=== PATIENT | female | born 1970 | race Caucasian/White ===

== ENCOUNTER → 2017-08-25 | Outpatient (CLI) | payer OTHER ==
[~2017-08-25] MED LIST: ALBUAER19 INH; BCPILLS PO; FLUT0.0529 NAE; LORA-741 PO; LORA10CA2 PO; MAGN400T6 PO; MOME100A INH; MONT1TAB3 PO; MULT-506 PO; PRLSR20 PO; RANI300T2 PO; SERT50TA PO
== END | disposition home or self-care (01) ==
LOC: C.LABPVFM 08:55
PROVIDERS: ATTEND Internal Medicine Endocrinology, Diabetes & Metabolism
DX: E05.00 Thyrotoxicosis with diffuse goiter without thyrotoxic crisis or storm (principal)

== ENCOUNTER → 2017-09-15 | Outpatient (CLI) | payer OTHER | END | disposition home or self-care (01) | LOC: C.LABPVFM 08:57 | PROVIDERS: ATTEND Internal Medicine Endocrinology, Diabetes & Metabolism | DX: E05.90 Thyrotoxicosis, unspecified without thyrotoxic crisis or storm (principal) ==

== ENCOUNTER → 2017-10-18 | Outpatient (CLI) | payer OTHER | END | disposition home or self-care (01) | LOC: C.LABPVFM 11:46 | PROVIDERS: ATTEND Internal Medicine Endocrinology, Diabetes & Metabolism | DX: E05.90 Thyrotoxicosis, unspecified without thyrotoxic crisis or storm (principal) ==

== ENCOUNTER → 2017-12-01 | Outpatient (CLI) | payer OTHER ==
--- NOTE | 2017-12-01 12:02 | DIAGNOSTIC IMAGING REPORT ---
NUCLEAR THYROID TREATMENT CLINICAL HISTORY: Hyperthyroidism. COMPARISON STUDY: Nuclear thyroid uptake and scan dated 11/16/2017. PROCEDURE: This is a 47 year-old female patient of Dr. Mckeon presenting with a clinical diagnosis of Graves' disease. Following discussion of treatment options, risks, benefits, and precautions the patient was treated with an oral dosage of 15.44 mCi of iodine-131. The patient will be followed by Dr. Mckeon. IMPRESSION: Completed iodine-131 treatment with an administered dosage of 15.44 mCi. Electronically signed by: Dimitri Pang M.D. 12/01/2017 12:01 PM Dictated Date/Time: 12/01/2017 12:00 PM
== END | disposition home or self-care (01) ==
LOC: C.NUCL 10:21
PROVIDERS: ATTEND Internal Medicine Endocrinology, Diabetes & Metabolism
DX: E05.00 Thyrotoxicosis with diffuse goiter without thyrotoxic crisis or storm (principal)

== ENCOUNTER → 2018-03-27 | Outpatient (CLI) | payer OTHER | END | disposition home or self-care (01) | LOC: C.LAB1850 08:22 | PROVIDERS: ATTEND Internal Medicine Endocrinology, Diabetes & Metabolism | DX: E05.00 Thyrotoxicosis with diffuse goiter without thyrotoxic crisis or storm (principal) ==

== ENCOUNTER 2019-06-24 06:13 | Inpatient (IN) ==
[2019-06-24] MEDS ORDERED: KETOROLAC 30 MG/ML VIAL IV STA (06:31)
[2019-06-24] MEDS ORDERED: ONDANSETRON INJ 2 MG/ML 2 ML VIAL IV STA (06:31)
[2019-06-24] MEDS ORDERED: HYDROmorphone INJ 1 MG/ML SYRINGE IV PRN (06:31)
[2019-06-24 06:43] LABS: Basophils # (auto) 0.02 K/uL (0-0.2); Basophils % (auto) 0.2 %; Eosinophils # (auto) 0.11 K/uL (0-0.5); Eosinophils % (auto) 1.1 %; Hematocrit (blood only) 49.7 % (37-47); Hemoglobin 17.6 g/dL (12.0-16.0); Immature Granulocytes # (auto) 0.03 K/uL (0.00-0.02); Immature Granulocytes % (auto) 0.3 %; Lymphocytes # (auto) 2.25 K/uL (1.2-3.4); Lymphocytes % (auto) 22.2 %; Mean Corpuscular Hemoglobin 32.2 pg (25-34); Mean Corpuscular Hgb Conc 35.4 g/dL (32-36); Mean Corpuscular Volume 90.9 fL (80-100); Monocytes # (auto) 0.93 K/uL (0.11-0.59); Monocytes % (auto) 9.2 %; Platelet Count 255 K/uL (130-400); RDW Standard Deviation 46.7 fL (36.4-46.3); Red Blood Count 5.47 M/uL (4.2-5.4); White Blood Count 10.14 K/uL (4.8-10.8)
[2019-06-24] MEDS ORDERED: SODIUM CHLORIDE 0.9% 1000ML 1,000 ML IV SCH (06:45)
[2019-06-24 07:11] LABS: Appearance Urine Clear (Clear); Bacteria Urine Automated Negative (Negative); Bilirubin Urine Negative (Negative); Blood Urine 2+ (Negative); Cast Urine Automated 0 /lpf (0-5); Color Urine Yellow; Glucose Urine UA Negative (Negative); Ketones Urine Negative (Negative); Leukocyte Esterase Urine Trace (Negative); Nitrite Urine Negative (Negative); Protein Urine Negative (Negative); Specific Gravity Urine 1.011 (1.000-1.030); Urobilinogen Urine Negative (Negative)
[2019-06-24 07:16] LABS: Albumin Globulin Ratio 0.9 (0.9-2); Albumin Level 3.7 gm/dl (3.4-5.0); Bilirubin,Total 1.2 mg/dl (0.2-1); Calcium 9.5 mg/dl (8.5-10.1); Creatinine Clr Calc Pharmacy 99.1 ml/min; Est GFR (African American) 122.3; Est GFR (Non-African American) 105.5; Globulin 4.3 gm/dl (2.5-4.0)
[2019-06-24] MEDS ORDERED: cefOXitin 2,000 MG/60 ML BAG IV STA (08:00)
[2019-06-24] MEDS ORDERED: IOVERSOL 100ml IV PRN (08:00)
--- NOTE | 2019-06-24 08:17 | Ultrasound Report ---
US gallbladder HISTORY: 49 years-old Female Pt c/o RUQ abd pain acute right upper quadrant abdominal pain COMPARISON: CT abdomen and pelvis of same day TECHNIQUE: Multiple real-time sonographic images of the abdominal right upper quadrant were obtained assessing grayscale appearance and color flow FINDINGS: The imaged pancreas appears unremarkable. No pancreatic ductal dilation. The liver is within normal l imits without focal mass or intrahepatic biliary ductal dilation. Cholelithiasis without gallbladder wall thickening or pericholecystic fluid. Common bile duct is normal, 5 mm. Imaged right kidney is un remarkable without hydronephrosis. IMPRESSION: 1. Cholelithiasis without sonographic evidence of acute cholecystitis. 2. No biliary ductal dilation. The above report was generated using voice recognition software. It may contain grammatical, syntax o r spelling errors. Electronically signed by: Ru Vazquez M.D. 06/24/2019 8:15 AM
--- NOTE | 2019-06-24 08:27 | CT Scan Report ---
ABDOMEN AND PELVIS CT WITH IV CONTRAST CT DOSE: 433.24 mGy.cm HISTORY: Acute right upper quadrant abdominal pain Pt c/o RUQ abd pain TECHNIQUE: Multiaxial CT images of the abdomen and pelvis were performed following the IV administrat ion of 94 cc of Optiray 320, A dose lowering technique was utilized adhering to the principles of [place] ANITA. COMPARISON STUDY: Right upper quadrant abdominal ultrasound of same day, CT abdomen and pelvis 2012 FINDINGS: Imaged lung bases appear clear. There is no pneumatosis or pneumoperitoneum. The imaged inferior card iac chambers appear unremarkable. Cholelithiasis described on ultrasound study of same day is not alex reciated by CT. The gallbladder wall appears to measure in the upper limits of normal. The liver, spl een, pancreas and adrenal glands are unremarkable. No renal or ureteral calculi or obstructive uropat hy. 11 mm cyst of the inferior pole right kidney. Urinary bladder, uterus and adnexa appear unremarka ble. Calcified plaque of the abdominal aorta. No aneurysm. No bowel obstruction or bowel wall thicken ing. Visualized appendix appears noninflamed. Mild generalized body wall edema. Degenerative changes of the spine, pelvis and hips. Transitional lumbosacral anatomy. IMPRESSION: 1. No bowel obstruction or bowel wall thickening. 2. Gallbladder wall measures within the upper limits of normal. Please refer to right upper quadrant abdominal ultrasound of same day for further details. Electronically signed by: Ru Vazquez M.D. 06/24/2019 8:26 AM
--- NOTE | 2019-06-24 09:10 | History & Physical Report ---
Date of Service June 24, 2019 Assessment & Plan (1) Pancreatitis: (2) Transaminitis: (3) Abdominal pain: Pt is 49 y/o F with PMH hypothyroidism, menometrorrhagia presented with c/o upper abdominal pain,with radiation to back with associated nausea started this morning. Denies fever/chills, vomiting, diarrhea. Had reported intermittent upper abdominal pain for past month relieved with TUMS. In ER pt afebrile, P: 77, R: 16, BP: 133/87, 100% on RA. WBC: 10, H/H: 17.6/49, T Bili: 1.2, AST: 101, ALT: 102, Alk Phos: 91, Lipase: 12,748 GALLBLADDER US: 1. Cholelithiasis without sonographic evidence of acute cholecystitis. 2. No biliary ductal dilation. CT ABD/PELVIS: 1. No bowel obstruction or bowel wall thickening. 2. Gallbladder wall measures within the upper limits of normal. Please refer to right upper quadrant abdominal ultrasound of same day for further details. Pancreatitis likely secondary to stone. -In ER received Dilaudid, Toradol, Zofran, 1L NSS, Mefoxin -NPO -LR at 250ml/hr -Zofran prn nausea -Morphine prn pain -GI consult -General surgery consult -CBC, Liver/CMP, Lipase in am (4) Elevated blood-pressure reading, without diagnosis of hypertension: In ER BP: 165/105. Repeat BP: 146/91 after receiving pain medication Likely secondary to pain -Monitor BP (5) Hypothyroidism: Graves disease s/p radiation -Continue levothyroxine DVT Prophylaxis -SCDs Follows with Dr Matias for routine care Pt was seen and care coordinated with Dr Adame. See addendum History of Present Illness Chief Complaint: Abdominal pain Primary Care Provider: Darlene Matias, Pt is 49 y/o F with PMH Graves disease s/p radiation, menometrorrhagia presented to ER with c/o abdominal pain. Reports for past month with intermittent upper abdominal pain that would resolve with taking TUMS. 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 Also with nausea. No vomiting. Tried TUMS without relief. Did take her am meds this morning with sip of water. Last ate nutrition bar at 20:00 last night. Reports for past several months has been doing a weight loss program that includes nutrition bars and shakes and reports has lost 75lbs. She reports the shakes make her constipated. Last BM was small yesterday. Denies fever/chills, diaphoresis, vomiting, CORONADO, dizziness, syncope, vision changes, neck pain, CP, SOB, orthopnea, palpitations, cough, sore throat, choking, otalgia, rhinorrhea, paresthesias, weakness, extremity weakness, extremity edema, rashes, urinary symptoms. Denies ETOH use. Allergies Allergy/AdvReac Type Severity Reaction Status Date / Time No Known Allergies Allergy Unverified 06/24/19 06:57 Home Medications Home Medications Medication Instructions Recorded Confirmed Type L norgest/e.estradiol-e.estrad 1 tab PO DAILY 06/24/19 06/24/19 History [Seasonique] levothyroxine 125 mcg PO QAM 06/24/19 06/24/19 History magnesium oxide 400 mg PO DAILY 06/24/19 06/24/19 History multivitamin 1 tab PO QAM 06/24/19 06/24/19 History Past Med/Surg History Medical History Hypothyroidism (Chronic) Depression (Resolved) Menometrorrhagia (Chronic) Surgical History History of tubal ligation (Chronic) History of pelvic surgery (Chronic) removal endometroma - 2001. Dr Trevino History of right inguinal hernia repair (Chronic) History of (Chronic) Family History Mother Diabetes Hypertension Grandmother (Paternal) Hypertension Social History Preferred Language: Pashto Communication Ability: Effective Tile Decorator Required: No Beliefs That Will Affect Care: None Current Living Situation: Spouse Other Information That Helps Us Care for You: No Feels Safe at Home: Yes Safety Concerns: Feels Safe At This Time Smoking Status: Never smoker Hx Alcohol Use: No Hx Substance Use: No Review of Systems Review of Systems: All systems reviewed & are unremarkable except as noted in HPI & below Physical Exam Physical Exam: General: no distress, WDWN Head: normocephalic, atraumatic Eyes: PERRL, EOM's intact, conjunctiva non-injected, anicteric ENT: normal inspection external ears, nose, mucous membranes moist Neck: supple, trachea midline Lungs: clear, no respiratory distress, no wheezing/rhonchi/rales CV: RRR, no murmur, no pretibial edema Abd: normal BS, soft, +tenderness to palpation epigastric without rebound Ext: no cyanosis, no calf tenderness Neuro: A&O x 3, no focal deficits noted, normal affect Skin: warm, dry Results & Data Vital Signs (Past 12 Hours) Vital Signs Temp Pulse Pulse Resp BP BP Pulse Ox 06/24/19 06:47 82 20 165/105 H 99 06/24/19 06:35 98 06/24/19 06:15 36.6 C 77 16 133/87 100 Laboratory Results Short CBC 06/24/19 Range/Units 06:30 WBC 10.14 (4.8-10.8) K/uL Hgb 17.6 H (12.0-16.0) g/dL Hct 49.7 H (37-47) % Plt Count 255 (130-400) K/uL BMP 06/24/19 06:30 Sodium 141 Potassium 4.0 Chloride 107 Carbon Dioxide 27 BUN 15 Creatinine 0.64 Glucose 99 Calcium 9.5 Liver Function 06/24/19 Range/Units 06:30 Total Bilirubin 1.2 H (0.2-1) mg/dl AST 101 H (15-37) U/L ALT 102 H (12-78) U/L Alkaline Phosphatase 91 (45-117) U/L Albumin 3.7 (3.4-5.0) gm/dl Urine 06/24/19 Range/Units 06:45 Urine Color Yellow Urine Appearance Clear (Clear) Urine pH 8.0 H (4.5-7.5) Ur Specific [place] 1.011 (1.000-1.030) Urine Protein Negative (Negative) Urine Glucose (UA) Negative (Negative) Diagnostic Findings GALLBLADDER US: IMPRESSION: 1. Cholelithiasis without sonographic evidence of acute cholecystitis. 2. No biliary ductal dilation. CT ABD/PELVIS WITH IV CONTRAST: IMPRESSION: 1. No bowel obstruction or bowel wall thickening. 2. Gallbladder wall measures within the upper limits of normal. Please refer to right upper quadrant abdominal ultrasound of same day for further details. Supervising Physician Co-Signing Physician Notes I have seen and examined the patient and have discussed the case with the provider above. 49 yo F presented with gallstone-induced pancreatitis after one month of epigastric pain, initially relieved with TUMS. More intense pain occurred in the 24 hours prior to arrival in the ER. She subsequently underwent an ERCP this morning with removal of a stone and stent placement. Choledocholithiasis was seen on imaging and she is now preparing for a lap guicho in the am. She is doing well post-procedure, but was reporting nausea. She is hemodynamically stable and afebrile. Heart exam reveals S1/2 without murmurs, gallops or rubs. Lungs are clear to auscultation bilaterally and she is in no respiratory distress. No conversational dyspnea was noted. Legs are warm and well-perfused without edema. Epigastric tenderness is present on exam and otherwise abdomen is soft and nondistended. Will cont to keep her NPO with LR running @ 250cc/hr. Her pain is uncontrolled with the morphine so will switch to dilaudid. Also gave IV APAP and IV Synthroid to avoid PO medications and provide adequate bowel rest. Trend labs in am and follow clinical picture. Planned dispo is home later this week barring any complications. Active issues: Gallstone pancreatitis-s/p stent placement Hypothyroidism Menometrorrhagia-on OCPs [facility]ame [facility]
--- NOTE | 2019-06-24 09:18 | Gastrointestinal Consultation ---
Date of Consultation June 24, 2019 Assessment & Plan (1) Choledocholithiasis with obstruction: Ms. Yang has RUQ pain, nausea, elevated LFTs. US is suggestive of choledocholithiasis. 1. LR 1000 bolus now. 2. NPO 3. Analgesics prn pain. 4. Plan for ERCP this afternoon by Dr. Marr. Present on Admission?: Yes Supervising Physician Co-Signing Physician Notes I performed a history and physical examination of the patient, including specifically on physical exam - soft, nontender abdomen. I have discussed the patient's management with Kyung. Please refer to the nurse practitioner's note for the documented findings and plan of care. Patient with gallstone pancreatitis and elevated LFTs, pain is better now. No leukocytosis or SIRS. High probability for choledocholithiasis. Plan for ERCP today. I explained risk, benefit and alternatives and patient agreed for procedure. History of Present Illness Reason for Consultation: Choledocholithiasis Requesting Physician: Dr. Appiah Attending Physician: Maricel Pugh History of Present Illness Ms. Erendira Yang is a 49 yr old female pt of Dr. Matias with a hx of endometriosis, Grave's disease S/P oral radiation tx who presented to the ED for upper abdomen pain, nausea/vomiting. GI is consulted for choledocholithiasis. She was awakened by severe upper abdomen pain at 3AM this morning. After trying to drink water she had nausea but no vomiting. No diarrhea. No fevers, chills, sweats, no dark urine, no acholic stools. She has had similar episodes of pain intermittently in the past 6 weeks which did not persist. She is on a weight loss diet on a low fat, low carb, moderate protein diet. She has intentionally lost 75 lbs. On arrival US with suggestion of choledocholithiasis. LFTs are elevated: T Bili 1.2, AST 101, ALT 102, Alk phos 91. Lipase is also elevated at 12,748. She is awake, alert, oriented and currently feels improvement in the pain with medication. Allergies Allergy/AdvReac Type Severity Reaction Status Date / Time No Known Allergies Allergy Unverified 06/24/19 06:57 Home Medications Home Medications Medication Instructions Recorded Confirmed Type L norgest/e.estradiol-e.estrad 1 tab PO DAILY 06/24/19 06/24/19 History [Seasonique] levothyroxine 125 mcg PO QAM 06/24/19 06/24/19 History magnesium oxide 400 mg PO DAILY 06/24/19 06/24/19 History multivitamin 1 tab PO QAM 06/24/19 06/24/19 History Patient History Medical History Hypothyroidism (Chronic) Depression (Resolved) Menometrorrhagia (Chronic) Surgical History History of tubal ligation (Chronic) History of pelvic surgery (Chronic) removal endometroma - 2001. Dr Trevino History of right inguinal hernia repair (Chronic) History of (Chronic) Family History Mother Diabetes Hypertension Grandmother (Paternal) Hypertension Social History Preferred Language: Malay Communication Ability: Effective Online Content Editor Required: No Beliefs That Will Affect Care: None Current Living Situation: Spouse Other Information That Helps Us Care for You: No Feels Safe at Home: Yes Safety Concerns: Feels Safe At This Time Smoking Status: Never smoker Hx Alcohol Use: No Hx Substance Use: No Review of Systems Review of Systems: ROS: Gen: Denies weakness, fevers, weight loss Eyes: No icterus, no eye redness, or pain, no recent vision changes Resp: No SOB, no cough Cardio: Some chest pain with the abdominal pain but no exertional pain. No palpitations/irregular beats, no chest pain GI: No abdominal pain, no nausea/vomiting : Denies pain on urination Skin: No jaundice, itching or new rashes Physical Exam Constitutional: WD/WN, vitals as above Eyes: PERRL, conjunctivae normal, anicteric sclerae ENMT: external ear and nose normal, oropharynx normal no icterus Neck: trachea midline, no thyromegaly Respiratory: normal respiratory effort, lungs clear to auscultation Cardiovascular: RRR, no murmur, no edema Gastrointestinal (Abdomen): Inspection/Auscultation: abdomen normal to inspection; abdomen not distended Percussion/Palpation: + abdomen tender (mild to moderate epigastric tenderness) and abdomen soft Musculoskeletal: no cyanosis or clubbing, extremities motor strength 5/5 Skin: no rashes, warm and dry Neurologic: PERRL, EOMI, accommodation nl, no face palsy, no dysarthria Psychiatric: A+Ox3, euthymic affect Lymphatic: no cervical or axillary lymphadenopathy Results & Data Vital Signs (Past 12 Hours) Vital Signs Temp Pulse Pulse Resp BP BP Pulse Ox 06/24/19 06:47 82 20 165/105 H 99 06/24/19 06:35 98 06/24/19 06:15 36.6 C 77 16 133/87 100 Laboratory Results WBC 10.14, T Bili 1.2, AST 101 ALT 102, Alk Phos 91, Hb 17, Hct 49, Platelets 255, Na 141, K 4, BUN 15, Cr 0.6. Diagnostic Findings CT with IV, not oral contrast 06/24/19: 1. No bowel obstruction or bowel wall thickening. 2. Gallbladder wall measures within the upper limits of normal. Please refer to right upper quadrant abdominal ultrasound of same day for further details. US 06/24/19: 1. Cholelithiasis without sonographic evidence of acute cholecystitis. 2. No biliary ductal dilation.
[2019-06-24] MEDS ORDERED: LACTATED RINGER'S 250 ML IV ONE (10:20)
[2019-06-24] MEDS ORDERED: POLYETHYLENE (MIRALAX) 17 GM PACK PO PRN (10:21)
[2019-06-24] MEDS ORDERED: ONDANSETRON INJ 2 MG/ML 2 ML VIAL IV PRN ×2 (10:21→13:19)
[2019-06-24] MEDS: LACTATED RINGER'S 1,000 ML IV SCH ×3 (10:30→22:51)
[2019-06-24] MEDS: MoRPHine SULFATE 4 MG/ML 1 ML CARP\\VIAL IV PRN ×2 (11:09→16:29)
[2019-06-24] MEDS ORDERED: DEXAMETHASONE SOD INJ 4 MG/ML VIAL ONE (12:25)
[2019-06-24] MEDS ORDERED: MIDAZOLAM HCL 1 MG/ML 2ML VIAL ONE (12:25)
[2019-06-24] MEDS ORDERED: NEOSTIGMINE METHYLSULFATE 5 MG/5 ML SYR ONE (12:25)
[2019-06-24] MEDS ORDERED: PROPOFOL IV EMULSION 10 MG/ML 20 ML VIAL IV ONE (12:25)
[2019-06-24] MEDS ORDERED: LIDOCAINE HCL 2% 2 ML VIAL/AMP(20MG/ML) INFIL ONE (12:25)
[2019-06-24] MEDS ORDERED: ONDANSETRON INJ 2 MG/ML 2 ML VIAL ONE (12:25)
[2019-06-24] MEDS ORDERED: GLYCOPYRROLATE 0.2 MG/ML VIAL ONE (12:25)
[2019-06-24] MEDS ORDERED: fentaNYL citrate 100 MCG/2 ML VIAL ONE (12:25)
--- NOTE | 2019-06-24 12:35 | Anesthesiology Consultation ---
Date of Service June 24, 2019 Assessment & Plan (1) Encounter for pre-operative examination: Chart Review Chart Review: Acceptable Risk for Surgery History Surgery Operation Date: 06/24/19 10:00 Proposed Procedures p Endoscopic Retrograde Cholangiopancreatogram - Loco Marr MD Height/Weight Height: 5 ft 2 in Weight: 70.8 kg Allergies Allergy/AdvReac Type Severity Reaction Status Date / Time No Known Allergies Allergy Unverified 06/24/19 06:57 Medications Home Medications Medication Instructions Recorded Confirmed Last Taken L norgest/e.estradiol-e.estrad 1 tab PO DAILY 06/24/19 06/24/19 06/24/19 [Seasonique] levothyroxine 125 mcg PO QAM 06/24/19 06/24/19 06/24/19 magnesium oxide 400 mg PO DAILY 06/24/19 06/24/19 Unknown multivitamin 1 tab PO QAM 06/24/19 06/24/19 06/24/19 Active Medications Generic Name Dose Route Start Last Admin Trade Name Freq PRN Reason Stop Dose Admin Lactated Ringer's 1,000 mls @ 250 mls/hr 06/24/19 10:21 06/24/19 10:30 Lr IV 07/24/19 10:20 250 mls/hr .Q4H CADEN Administration Morphine Sulfate 3 mg 06/24/19 10:21 06/24/19 11:09 Morphine Sulfate IV 07/08/19 10:20 3 mg Q3H PRN Administration Pain Past Medical History Medical History Hypothyroidism (Chronic) Depression (Resolved) Menometrorrhagia (Chronic) Past Family History Family History Mother Diabetes Hypertension Grandmother (Paternal) Hypertension Past Surgical History Surgical History History of tubal ligation (Chronic) History of pelvic surgery (Chronic) removal endometroma - 2001. Dr Trevino History of right inguinal hernia repair (Chronic) History of (Chronic) Social History Smoking Status: Never smoker Hx Alcohol Use: No Hx Substance Use: No Physical Exam Vital Signs Last Vital Signs Temp 36.6 C 06/24/19 10:15 Pulse 76 06/24/19 10:15 Resp 16 11/04/19 10:15 BP 128/83 06/24/19 10:15 Pulse Ox 97 06/24/19 10:15 Testing Laboratory Results 06/24/19 06:30 06/24/19 06:30 Urine Color Yellow 06/24/19 06:45 Urine Appearance Clear (Clear) 06/24/19 06:45 Urine pH 8.0 (4.5-7.5) H 06/24/19 06:45 Ur Specific [place] 1.011 (1.000-1.030) 06/24/19 06:45 Urine Protein Negative (Negative) 06/24/19 06:45 Urine Glucose (UA) Negative (Negative) 06/24/19 06:45 Urine Ketones Negative (Negative) 06/24/19 06:45 Urine Nitrite Negative (Negative) 06/24/19 06:45 Ur Leukocyte Esterase Trace (Negative) H 06/24/19 06:45 Urine WBC (Auto) 1-5 /hpf (0-5) 06/24/19 06:45 Urine RBC (Auto) 10-30 /hpf (0-4) H 06/24/19 06:45 U Hyaline Cast (Auto) 0 /lpf (0-5) 06/24/19 06:45 U Epithel Cells (Auto) 10-20 /lpf (0-5) H 06/24/19 06:45 Urine Bacteria (Auto) Negative (Negative) 06/24/19 06:45
--- NOTE | 2019-06-24 12:41 | Emergency Department Note ---
Entered by Jose Jones acting as a scribe for Jaydon Appiah MD History of Present Illness General Chief complaint: Abdominal Pain Stated complaint: UPPER ABDOMINAL PAIN Time Seen by Provider: 06/24/19 06:25 Source: patient History of Present Illness Provider complaint: Abdominal pain Onset (ago): hour(s) 3 Location: abdomen Severity: similar to prior episodes Pain Consistency: + constant Maximum Pain Intensity: 10 Current Pain Intensity: 10 Relieved By: + none Exacerbated By: + other (Deep breath) Associated symptoms: + nausea/vomiting (No vomiting) The patient is a 49 year old female who presents to the Emergency Room with complaints of constant upper abdominal pain that started this morning about 3 hours ago. The patient rates the pain as a 10/10 and notes taking a deep breath makes it worse. The patient reports that she tried taking Tums prior to arrival but had no relief of symptoms. The patient adds that she has had similar pain in the past, however it is never this severe nor has it ever lasted this long. The patient states she still has a gallbladder but has a history of endometrioma removal, and hernia repair. Home Medications Home Medications Medication Instructions Recorded Confirmed Type L norgest/e.estradiol-e.estrad 1 tab PO DAILY 06/24/19 06/24/19 History [Seasonique] levothyroxine 125 mcg PO QAM 06/24/19 06/24/19 History magnesium oxide 400 mg PO DAILY 06/24/19 06/24/19 History multivitamin 1 tab PO QAM 06/24/19 06/24/19 History Allergies Allergy/AdvReac Type Severity Reaction Status Date / Time No Known Allergies Allergy Unverified 06/24/19 06:57 Past Med/Surg History Medical History Hypothyroidism (Chronic) Depression (Resolved) Menometrorrhagia (Chronic) Surgical History History of tubal ligation (Chronic) History of pelvic surgery (Chronic) removal endometroma - 2001. Dr Trevino History of right inguinal hernia repair (Chronic) History of (Chronic) Family History Mother Diabetes Hypertension Grandmother (Paternal) Hypertension Social History Preferred Language: Vietnamese Communication Ability: Effective Foundry Helper Required: No Beliefs That Will Affect Care: None Current Living Situation: Spouse Other Information That Helps Us Care for You: No Feels Safe at Home: Yes Safety Concerns: Feels Safe At This Time Smoking Status: Never smoker Hx Alcohol Use: No Hx Substance Use: No Review of Systems See HPI for pertinent positives & negatives. and A total of 10 systems reviewed and were otherwise negative Physical Exam Vital Signs Vital Signs - 24 hr 06/24/19 06:15 06/24/19 06:35 06/24/19 06:47 Temperature 36.6 C Temperature Source Oral Sepsis Recent Fever Within 48 Hours No Sepsis New/Unexplained Change in Mental Status No Sepsis Action Taken by Nursing No Action Required Pulse Rate 77 Pulse Rate [Bilateral Apical] 82 Respiratory Rate 16 20 Respiratory Effort / Characteristics Non-Labored Respiratory Depth Normal Blood Pressure 133/87 Blood Pressure [Left Arm] 165/105 H Blood Pressure Mean 102 Blood Pressure Mean [Left Arm] 125 Pulse Oximetry 100 98 99 Oxygen Delivery Method Room Air Room Air Room Air GENERAL: Awake, alert, well-appearing, in no distress HENT: Normocephalic, atraumatic. Oropharynx unremarkable. EYES: Normal conjunctiva. Sclera non-icteric. NECK: Supple. No nuchal rigidity. FROM. No masses. RESPIRATORY: Clear to auscultation. No wheezes. No rales. Normal respiratory effort. CARDIAC: Normal rate. Normal rhythm. No murmurs. No rubs. Extremities warm and well perfused. Pulses equal. No JVD. GI: Soft, non-distended. Tender to the RUQ. No rebound or guarding. No masses. RECTAL: Deferred. MUSCULOSKELETAL: Atraumatic. Chest examination reveals no tenderness. The back is symmetrical on inspection without obvious abnormality. There is no CVA tenderness to palpation. No joint edema. LOWER EXTREMITIES: Calves are equal size bilaterally and non-tender. No edema. No discoloration. NEURO: Normal sensorium. No sensory or motor deficits noted. Course 0627: Past medical records reviewed. The patient was evaluated in room A12B, and a complete history and physical examination were performed. 0817: I reevaluated the patient and she is resting in bed. I updated her on results as well as the plan to have her stay in the hospital. She is agreeable with the plan. 0820: I spoke to Maricel Pugh Masood PAC under Dr. Deep Wren, about the patient's case. They are going to accept the patient for further evaluation. 0823: I spoke to Kyung LOPEZ about the patient's case and she agreed to be on consult. 0835: I spoke to Franny Diana [facility] PAC about the patient's case. She also agreed to be on consult. Consultations Consultation #1: I spoke to Maricel Correia PAC under Dr. Deep Wren, about the patient's case. They are going to accept the patient for further evaluation. Time: 08:20 Consultation #2: I spoke to Kyung LOPEZ about the patient's case and she agreed to be on consult. Time: 08:23 Consultation #3: I spoke to Franny Diana [facility] PAC about the patient's case. She also agreed to be on consult. Time: 08:35 Administered Medications Lactated Ringer's (Lr) 1,000 mls @ 250 mls/hr IV .Q4H CADEN Stop: 07/24/19 10:20 Last Admin: 06/24/19 10:30 Dose: 250 mls/hr Documented by: [id number] Morphine Sulfate (Morphine Sulfate) 3 mg IV Q3H PRN PRN Reason: Pain Stop: 07/08/19 10:20 Last Admin: 06/24/19 11:09 Dose: 3 mg Documented by: [id number] Discontinued Medications Hydromorphone HCl (Dilaudid) 1 mg IV Q15M PRN PRN Reason: Pain Stop: 07/08/19 06:30 Last Admin: 06/24/19 06:41 Dose: 1 mg Documented by: [id number] Sodium Chloride (Nss 1000ml) 1,000 mls @ 999 mls/hr IV .Q1H1M CADEN Stop: 06/24/19 07:45 Last Infusion: 06/24/19 10:31 Dose: 0 mls/hr Documented by: [id number] Admin: 06/24/19 06:40 Dose: 999 mls/hr Documented by: [id number] Cefoxitin Sodium (Mefoxin) 2,000 mg in 60 mls @ 100 mls/hr IV NOW STA Stop: 06/24/19 08:35 Last Admin: 06/24/19 10:31 Dose: Not Given Documented by: [id number] Lactated Ringer's (Lr) 250 mls @ 999 mls/hr IV .Q16M ONE Stop: 06/24/19 10:35 Last Admin: 06/24/19 10:30 Dose: Not Given Documented by: [id number] Ioversol (Optiray 320 100ml) 94 ml IV ONCE PRN PRN Reason: Interaction Checking Stop: 06/28/19 07:59 Last Admin: 06/24/19 08:01 Dose: 94 ml Documented by: [id number] Ketorolac Tromethamine (Toradol) 30 mg IV NOW STA Stop: 06/24/19 06:32 Last Admin: 06/24/19 06:41 Dose: 30 mg Documented by: [id number] Ondansetron HCl (Zofran) 4 mg IV NOW STA Stop: 06/24/19 06:32 Last Admin: 06/24/19 06:40 Dose: 4 mg Documented by: [id number] Medical Decision Making Differential Diagnosis Differential diagnoses includes but is not limited to gastritis, peptic ulcer disease, GERD, gallbladder disease, pancreatitis, small bowel obstruction, acute coronary syndrome, pericarditis, ischemic bowel, irritable bowel disease, i rritable bowel syndrome, appendicitis, diverticulitis, malignancy, hernia, urinary tract infection, torsion, perforation, trauma, infectious. Medical Records Attestation: I reviewed the patient's medical records. Home Medications Current Medication List: was personally reviewed by me Laboratory Data Attestation: I reviewed the patient's lab results. Result diagrams: 06/24/19 06:30 06/24/19 06:30 Lab Results 06/24/19 06/24/19 06/24/19 Range/Units 06:30 06:30 06:45 WBC 10.14 (4.8-10.8) K/uL RBC 5.47 H (4.2-5.4) M/uL Hgb 17.6 H (12.0-16.0) g/dL Hct 49.7 H (37-47) % MCV 90.9 (80-100) fL MCH 32.2 (25-34) pg MCHC 35.4 (32-36) g/dL RDW Std Deviation 46.7 H (36.4-46.3) fL RDW Coeff of Walt 14.0 (11.5-14.5) % Plt Count 255 (130-400) K/uL MPV 12.0 H (7.4-10.4) fL Immature Gran % (Auto) 0.3 % Neut % (Auto) 67.0 % Lymph % (Auto) 22.2 % [place] % (Auto) 9.2 % Eos % (Auto) 1.1 % Baso % (Auto) 0.2 % Immature Gran # (Auto) 0.03 H (0.00-0.02) K/uL Neut # (Auto) 6.80 H (1.4-6.5) K/uL Lymph # (Auto) 2.25 (1.2-3.4) K/uL [place] # (Auto) 0.93 H (0.11-0.59) K/uL Eos # (Auto) 0.11 (0-0.5) K/uL Baso # (Auto) 0.02 (0-0.2) K/uL Sodium 141 (136-145) mmol/L Potassium 4.0 (3.5-5.1) mmol/L Chloride 107 (98-107) mmol/L Carbon Dioxide 27 (21-32) mmol/L Anion Gap 7.0 (3-11) BUN 15 (7-18) mg/dl Creatinine 0.64 (0.6-1.2) mg/dl Est Cr Clr Drug Dosing 99.1 ml/min Est GFR ( Amer) 122.3 Est GFR (Non-Af Amer) 105.5 BUN/Creatinine Ratio 23.0 H (10-20) Glucose 99 (70-99) mg/dl Calcium 9.5 (8.5-10.1) mg/dl Total Bilirubin 1.2 H (0.2-1) mg/dl AST 101 H (15-37) U/L ALT 102 H (12-78) U/L Alkaline Phosphatase 91 (45-117) U/L Total Protein 8.0 (6.4-8.2) gm/dl Albumin 3.7 (3.4-5.0) gm/dl Globulin 4.3 H (2.5-4.0) gm/dl Albumin/Globulin Ratio 0.9 (0.9-2) Lipase 18072 H (73-393) U/L Urine Color Yellow Urine Appearance Clear (Clear) Urine pH 8.0 H (4.5-7.5) Ur Specific [place] 1.011 (1.000-1.030) Urine Protein Negative (Negative) Urine Glucose (UA) Negative (Negative) Urine Ketones Negative (Negative) Urine Blood 2+ H (Negative) Urine Nitrite Negative (Negative) Urine Bilirubin Negative (Negative) Urine Urobilinogen Negative (Negative) Ur Leukocyte Esterase Trace H (Negative) Urine WBC (Auto) 1-5 (0-5) /hpf Urine RBC (Auto) 10-30 H (0-4) /hpf U Hyaline Cast (Auto) 0 (0-5) /lpf U Epithel Cells (Auto) 10-20 H (0-5) /lpf Urine Bacteria (Auto) Negative (Negative) Imaging Data Radiologist's Impression: Radiology results as stated below per my review and the radiologist's interpretation: ABDOMEN AND PELVIS CT WITH IV CONTRAST CT DOSE: 433.24 mGy.cm HISTORY: Acute right upper quadrant abdominal pain Pt c/o RUQ abd pain TECHNIQUE: Multiaxial CT images of the abdomen and pelvis were performed follow ing the IV administration of 94 cc of Optiray 320, A dose lowering technique was utilized adhering to the principles of ALARA. COMPARISON STUDY: Right upper quadrant abdominal ultrasound of same day, CT abdomen and pelvis 08/06/2013 FINDINGS: Imaged lung bases appear clear. There is no pneumatosis or pneumoperitoneum. The imaged inferior cardiac chambers appear unremarkable. Cholelithiasis described on ultrasound study of same day is not appreciated by CT. The gallbladder wall appears to measure in the upper limits of normal. The liver, spleen, pancreas and adrenal glands are unremarkable. No renal or ureteral calculi or obstructive uropathy. 11 mm cyst of the inferior pole right kidney. Urinary bladder, uterus and adnexa appear unremarkable. Calcified plaque of the abdominal aorta. No aneurysm. No bowel obstruction or bowel wall thickening. Visualized appendix appears noninflamed. Mild generalized body wall edema. Degenerative changes of the spine, pelvis and hips. Transitional lumbosacral anatomy. IMPRESSION: 1. No bowel obstruction or bowel wall thickening. 2. Gallbladder wall measures within the upper limits of normal. Please refer to right upper quadrant abdominal ultrasound of same day for further details. Electronically signed by: uR Vazquez M.D. 06/24/2019 8:26 AM ADDENDUM The gallbladder wall measures within the upper limits of normal at 3 mm. If there is clinical concern for developing acute cholecystitis. A nuclear medicine hepatobiliary scan may be considered. Electronically signed by: Ru Vazquez M.D. 06/24/2019 8:20 AM ADDENDUM END US gallbladder HISTORY: 49 years-old Female Pt c/o RUQ abd pain acute right upper quadrant abdominal pain COMPARISON: CT abdomen and pelvis of same day TECHNIQUE: Multiple real-time sonographic images of the abdominal right upper quadrant were obtained assessing grayscale appearance and color flow FINDINGS: The imaged pancreas appears unremarkable. No pancreatic ductal dilation. The liver is within normal limits without focal mass or intrahepatic biliary ductal dilation. Cholelithiasis without gallbladder wall thickening or pericholecystic fluid. Common bile duct is normal, 5 mm. Imaged right kidney is unremarkable without hydronephrosis. IMPRESSION: 1. Cholelithiasis without sonographic evidence of acute cholecystitis. 2. No biliary ductal dilation. The above report was generated using voice recognition software. It may contain grammatical, syntax or spelling errors. Electronically signed by: Ru Vazquez M.D. 06/24/2019 8:15 AM Blood Pressure Blood Pressure Findings: Elevated blood pressure Blood Pressure Disposition: further management by hospitalist MDM Narrative This is a 49-year-old female who presents emergency department complaining of epigastric pain. Using shared medical decision-making with the patient the decision was made to send the patient for an ultrasound as well as CAT scan the abdomen pelvis. In addition laboratory work was also obtained. This was concerning for the patient's lipase being grossly elevated. The patient's liver enzymes are also slightly elevated. The patient's CAT scan and ultrasounds are concerning for acute cholecystitis. I did discuss the case with the surgeon as well as the smocker on-call. Patient was started on IV Mefoxin. She was given Dilaudid for the pain. I did discuss the case with the hospitalist service who agreed to admit the patient. Reexamination revealed improvement in the patient's symptoms. Patient was in agreement with the treatment plan. Impression & Plan Abdominal pain, Transaminitis, Choledocholithiasis with obstruction, Pancreatitis Discharge Plan Visit Data *Final* Discharge Date/Time: 06/24/19 10:03 Chief Complaint: Abdominal Pain Stated Complaint: UPPER ABDOMINAL PAIN ED Provider: Jaydon Appiah Discharge Problem: Abdominal pain, Transaminitis, Choledocholithiasis with obstruction, Pancreatitis Patient Disposition: Admitted As Inpatient Discharge Instructions Interventions: ED Discharge Assessment Last Done: 06/24/19 10:03 The scribe's documentation has been prepared under my direction and personally reviewed by me in its entirety. I confirm that the note above accurately reflects all work, treatment, procedures, and medical decision making performed by me.
[2019-06-24] MEDS ORDERED: INDOMETHACIN 50 MG SUPP PR ONE (13:00)
[2019-06-24] MEDS ORDERED: KETOROLAC 30 MG/ML VIAL IV PRN (13:19)
[2019-06-24] MEDS ORDERED: ATROPINE SULFATE 0.1 MG/ML 10ML SYR IV PRN (13:19)
[2019-06-24] MEDS ORDERED: LARYING-O-JET KIT (LTA) ONE (13:40)
--- NOTE | 2019-06-24 13:52 | Operative Report ---
Post Operative Report Pre & Post Diagnosis Operation Date: 06/24/19 10:00 Pre-Op Diagnosis: PANCREATITIS Post-Op Diagnosis: PANCREATITIS I identified the patient and participated in the time-out.: Yes Procedure Operation Date: 06/24/19 10:00 Actual Procedures p Endoscopic Retrograde Cholangiopancreatogram; Esophagogastroduodenoscopy(Not Applicable) - Loco Marr MD Surgeon Loco Marr MD Channeling Machine Operator None Estimated Blood Loss 0 Findings See Below (CBD stone removed, CBD stent placed) Specimens None Description of Procedure ERCP I attest to the content of the Intraoperative Record and any orders documented therein. Any exceptions are noted below.
--- NOTE | 2019-06-24 14:08 | Fluoroscopy Report ---
FL ERCP biliary ductal CLINICAL HISTORY: ERCP COMPARISON STUDY: CT scan dated 06/24/2019 FLUOROSCOPY TIME: 29 seconds. NUMBER OF FLUOROSCOPIC IMAGES: 7 FINDINGS: The common bile duct was cannulated and a retrograde fashion and contrast was instilled. No common bile duct filling defects are visualized. A sphincterotomy appears to have been performed and a balloon catheter was swept through the common bile duct. The final images demonstrate placement of a biliary enteric stent. IMPRESSION: 1. ERCP with placement of a biliary enteric stent. No evidence of cystic duct obstruction. Electronically signed by: Cristino Cuevas M.D. 06/24/2019 2:07 PM
--- NOTE | 2019-06-24 14:36 | GI REPORT ---
Patient Name: Erendira Yang Procedure Date: 06/24/2019 12:37 PM Date of : 1970 Admit Type: Inpatient Age: 49 Gender: Female Attending MD: Loco Marr MD Procedure: Upper GI endoscopy Providers: Loco Marr MD Referring MD: Kasandra Adame Do, Carey Kimber Keiter Indications: Epigastric abdominal pain Medicines: Propofol per Anesthesia Complications: No immediate complications. Estimated Blood Loss: Estimated blood loss: none. Procedure: Pre-Anesthesia Assessment: - Prior to the procedure, a History and Physical was performed, and patient medications, allergies and sensitivities were reviewed. The patient's tolerance of previous anesthesia was reviewed. - The risks and benefits of the procedure and the sedation options and risks were discussed with the patient. All questions were answered and informed consent was obtained. - Patient identification and proposed procedure were verified prior to the procedure by the physician and the nurse. The procedure was verified in the procedure room. - Pre-procedure physical examination revealed no contraindications to sedation. After obtaining informed consent, the endoscope was passed under direct vision. Throughout the procedure, the patient's blood pressure, pulse, and oxygen saturations were monitored continuously. The Scope was introduced through the mouth, and advanced to the second part of duodenum. The upper GI endoscopy was accomplished without difficulty. The patient tolerated the procedure well. Findings: The examined esophagus was normal. The entire examined stomach was normal. The duodenal bulb and second portion of the duodenum were normal. Impression: - Normal esophagus. - Normal stomach. - Normal duodenal bulb and second portion of the duodenum. - No specimens collected. Recommendation: - Perform an ERCP. Loco Marr MD 06/24/2019 2:35:41 PM This report has been signed electronically. Note Initiated On: 06/24/2019 12:37 PM Number of Addenda: 0 I attest to the content of the Intraoperative Record and orders documented therein, exceptions below {[id number]}
--- NOTE | 2019-06-24 14:42 | GI REPORT ---
Patient Name: Erendira Yang Procedure Date: 06/24/2019 12:37 PM Date of : 1970 Admit Type: Inpatient Age: 49 Gender: Female Attending MD: Loco Marr MD Procedure: ERCP Providers: Loco Marr MD Referring MD: Kasandra Adame Do, Carey Kimber Keiter Indications: Abdominal pain of suspected biliary origin, Abnormal abdominal ultrasound, Evaluation and possible treatment of bile duct stone(s), Elevated liver enzymes, Gallstone associated acute pancreatitis Medicines: General Anesthesia, Indomethacin 100 mg CO Complications: No immediate complications. Estimated Blood Loss: Estimated blood loss: none. Procedure: Pre-Anesthesia Assessment: - Prior to the procedure, a History and Physical was performed, and patient medications, allergies and sensitivities were reviewed. The patient's tolerance of previous anesthesia was reviewed. - The risks and benefits of the procedure and the sedation options and risks were discussed with the patient. All questions were answered and informed consent was obtained. - Patient identification and proposed procedure were verified prior to the procedure by the physician and the nurse. The procedure was verified in the procedure room. - Pre-procedure physical examination revealed no contraindications to sedation. - The anesthesia plan was to use general anesthesia. After obtaining informed consent, the scope was passed under direct vision. Throughout the procedure, the patient's blood pressure, pulse, and oxygen saturations were monitored continuously. The Scope was introduced through the mouth, and advanced to the duodenum and used to inject contrast into the bile duct. The ERCP was accomplished without difficulty. The patient tolerated the procedure well. Findings: The embroidery cutter film was normal. The esophagus was successfully intubated under direct vision. The scope was advanced to a normal major papilla in the descending duodenum without detailed examination of the pharynx, larynx and associated structures, and upper GI tract. The upper GI tract was grossly normal. The major papilla was on the rim of a diverticulum. A 0.035 inch straight Acrobat wire was passed into the biliary tree from the first attempt. The Fusion OMNI sphincterotome was passed over the guidewire and the bile duct was then deeply cannulated. Contrast was injected. I personally interpreted the bile duct images. Ductal flow of contrast was adequate. Image quality was adequate. Contrast extended to the main bile duct. The main bile duct was mildly dilated. The largest diameter was 8 mm. The lower third of the main bile duct contained one stone, which was 5 mm in diameter. Biliary sphincterotomy was made with a monofilament traction (standard) sphincterotome using ERBE electrocautery. There was no post-sphincterotomy bleeding. The biliary tree was swept with an 8.5 mm balloon starting at the bifurcation. One stone was removed. No stones remained. One 10 Fr by 7 cm plastic biliary stent with a single external flap and a single internal flap was placed into the common bile duct. Bile flowed through the stent. The stent was in good position. Indomethacin 100 mg was given via suppository to decrease the risk of post-ERCP pancreatitis (PEP). Pancreatic duct was not cannulated nor injected with contrast. Impression: - Choledocholithiasis was found. Complete removal was accomplished by biliary sphincterotomy and balloon extraction. - The major papilla was on the rim of a diverticulum. - The entire main bile duct was mildly dilated. - One plastic biliary stent was placed into the common bile duct. Recommendation: - Return patient to hospital [facility] for ongoing care. - Avoid aspirin and nonsteroidal anti-inflammatory medicines for 5 days. - Refer to a surgeon today for cholecystectomy. - Continue IV Hydration. - Repeat ERCP in 4 weeks to remove stent. Loco Marr MD 06/24/2019 2:41:30 PM This report has been signed electronically. Note Initiated On: 06/24/2019 12:37 PM Number of Addenda: 0 I attest to the content of the Intraoperative Record and orders documented therein, exceptions below {[id number]}
--- NOTE | 2019-06-24 14:43 | Anesthesiology Progress Note ---
Date of Service June 24, 2019 Anesthesia Post Procedure Vital Signs Vital Signs: Temp Pulse Pulse Pulse Pulse Resp BP 06/24/19 14:30 36.4 C L 84 16 06/24/19 14:20 86 16 06/24/19 14:10 68 16 06/24/19 14:00 36.2 C L 70 22 06/24/19 12:44 36.6 C 78 20 06/24/19 10:15 36.6 C 76 16 06/24/19 10:03 86 20 128/89 06/24/19 06:47 82 20 06/24/19 06:35 06/24/19 06:15 36.6 C 77 16 133/87 BP Pulse Ox 06/24/19 14:30 141/94 H 100 06/24/19 14:20 143/86 H 95 06/24/19 14:10 117/76 100 06/24/19 14:00 110/69 99 06/24/19 12:44 126/79 06/24/19 10:15 128/83 97 06/24/19 10:03 98 06/24/19 06:47 165/105 H 99 06/24/19 06:35 98 06/24/19 06:15 100 Pain Intensity Bilateral Abdomen: Pain Intensity: 6 Transfer of Care Handoff Completed per policy Notes Mental Status: alert / awake / arousable Patient Amnestic to Procedure: Yes Nausea / Vomiting: adequately controlled Pain: adequately controlled Airway Patency, RR, SpO2: stable & adequate BP & HR: stable & adequate Hydration State: stable & adequate Anesthetic Complications: no major complications apparent
[2019-06-24] MEDS: fentaNYL citrate 100 MCG/2 ML VIAL IV PRN ×2 (14:52→14:58)
--- NOTE | 2019-06-24 15:21 | Surgery Consultation ---
Date of Consultation June 24, 2019 Assessment & Plan (1) Gallstone pancreatitis: 49 year-old female who presented to ED last night with complaint of abdominal pain that suddenly woke her up with nausea. Has had similar episode of pain that have been self resolving for past 6 weeks. US showing gallstones. Labs consistent with gallstone pancreatitis. ERCP showed choledocholithiasis and biliary stent placed. Lipase 10164. Plan: Discussed with patient the indication for cholecystectomy in gallstone pancreatitis as this can reoccur if gallbladder not removed. Patient would like to proceed with lap guicho. Will plan for laparoscopic cholecystectomy tomorrow with Dr. Paniagua. Will obtain consent tomorrow after further discussion of procedure and risks as patient just returned to floor from ERCP procedure and still under effects of anesthesia May have clear liquids , NPO after midnight repeat am labs cbc cmp lipase continue medical management (2) Choledocholithiasis with obstruction: Plan as above Dr. Paniagua has seen and examined pt, agrees with above. Supervising Physician Co-Signing Physician Notes I interviewed and examined this patient I agree with the above note. This patient had choledocholithiasis. She underwent ERCP with placement of a stent and removal of stones from the common bile duct. We are planning for cholecystectomy tomorrow. Of explained to her the laparoscopic cholecystectomy and the possible need to convert to an open procedure. She must be n.p.o. after midnight. History of Present Illness Reason for Consultation: Gallstone pancreatitis Requesting Physician: Kasandra Adame DO Attending Physician: Kasandra Adame DO History of Present Illness 49 year-old female who presented to emergency department last evening with complaint of abdominal pain that suddenly woke her up at 3 am. States she had associated nausea. Has had similar episodes of pain for the past 6 weeks which has resolved on its own and after taking TUMS. Denies of any fever, chills, changes in bowel habits, diarrhea, constipation, or blood in stools. No prior history of pancreatitis, hepatitis, or jaundice. Has been on weight loss program and has lost 75 pounds intentionally. ER work-up included labs which showed no leukocytosis. T. bili elevated at 1.2, AST [place] 100[place] [address]. US showing cholelithiasis and mild gallbladder wall thickening at [address] scan showing mild gallbladder wall thickening. She just returned from ERCP which she was found to have choledocholithiasis and plastic biliary stent placed. Allergies Allergy/AdvReac Type Severity Reaction Status Date / Time No Known Allergies Allergy Unverified 06/24/19 06:57 Home Medications Home Medications Medication Instructions Recorded Confirmed Type L norgest/e.estradiol-e.estrad 1 tab PO DAILY 06/24/19 06/24/19 History [Seasonique] levothyroxine 125 mcg PO QAM 06/24/19 06/24/19 History magnesium oxide 400 mg PO DAILY 06/24/19 06/24/19 History multivitamin 1 tab PO QAM 06/24/19 06/24/19 History Patient History Medical History Hypothyroidism (Chronic) Depression (Resolved) Menometrorrhagia (Chronic) Surgical History History of tubal ligation (Chronic) History of pelvic surgery (Chronic) removal endometroma - 2001. Dr Trevino History of right inguinal hernia repair (Chronic) History of (Chronic) Family History Mother Diabetes Hypertension Grandmother (Paternal) Hypertension Social History Preferred Language: Thai Communication Ability: Effective Air Shovel Operator Required: No Beliefs That Will Affect Care: None Current Living Situation: Spouse Other Information That Helps Us Care for You: No Feels Safe at Home: Yes Safety Concerns: Feels Safe At This Time Smoking Status: Never smoker Hx Alcohol Use: No Hx Substance Use: No Review of Systems Review of Systems: All systems reviewed & are unremarkable except as noted in HPI & below Physical Exam Constitutional: WD/WN, vitals as above not ill appearing Respiratory: normal respiratory effort, lungs clear to auscultation Cardiovascular: RRR, no murmur, no edema Gastrointestinal (Abdomen): Inspection/Auscultation: abdomen normal to inspection; abdomen not distended Percussion/Palpation: + abdomen tender (epigastrium) and abdomen soft; no guarding and abdomen not rigid Skin: no rashes, warm and dry Psychiatric: A+Ox3, euthymic affect Results & Data Vital Signs (Past 12 Hours) Vital Signs Temp Pulse Pulse Pulse Pulse Resp BP 11/04/19 15:15 37.1 C 83 16 06/24/19 15:10 74 16 06/24/19 15:00 76 16 06/24/19 14:50 81 16 06/24/19 14:40 78 16 06/24/19 14:30 36.4 C L 84 16 06/24/19 14:20 86 16 06/24/19 14:10 68 16 06/24/19 14:00 36.2 C L 70 22 06/24/19 12:44 36.6 C 78 20 06/24/19 10:15 36.6 C 76 16 06/24/19 10:03 86 20 128/89 06/24/19 06:47 82 20 06/24/19 06:35 06/24/19 06:15 36.6 C 77 16 133/87 BP Pulse Ox 06/24/19 15:15 102/64 96 06/24/19 15:10 133/87 95 06/24/19 15:00 141/84 H 98 06/24/19 14:50 139/59 L 100 06/24/19 14:40 149/95 H 100 06/24/19 14:30 141/94 H 100 06/24/19 14:20 143/86 H 95 06/24/19 14:10 117/76 100 06/24/19 14:00 110/69 99 06/24/19 12:44 126/79 06/24/19 10:15 128/83 97 06/24/19 10:03 98 06/24/19 06:47 165/105 H 99 06/24/19 06:35 98 06/24/19 06:15 100 Laboratory Results 06/24/19 06/24/19 06/24/19 Range/Units 06:45 06:30 06:30 WBC 10.14 (4.8-10.8) K/uL RBC 5.47 H (4.2-5.4) M/uL Hgb 17.6 H (12.0-16.0) g/dL Hct 49.7 H (37-47) % MCV 90.9 (80-100) fL MCH 32.2 (25-34) pg MCHC 35.4 (32-36) g/dL RDW Std Deviation 46.7 H (36.4-46.3) fL RDW Coeff of Walt 14.0 (11.5-14.5) % Plt Count 255 (130-400) K/uL MPV 12.0 H (7.4-10.4) fL Immature Gran % (Auto) 0.3 % Neut % (Auto) 67.0 % Lymph % (Auto) 22.2 % Centre % (Auto) 9.2 % Eos % (Auto) 1.1 % Baso % (Auto) 0.2 % Immature Gran # (Auto) 0.03 H (0.00-0.02) K/uL Neut # (Auto) 6.80 H (1.4-6.5) K/uL Lymph # (Auto) 2.25 (1.2-3.4) K/uL Centre # (Auto) 0.93 H (0.11-0.59) K/uL Eos # (Auto) 0.11 (0-0.5) K/uL Baso # (Auto) 0.02 (0-0.2) K/uL Sodium 141 (136-145) mmol/L Potassium 4.0 (3.5-5.1) mmol/L Chloride 107 (98-107) mmol/L Carbon Dioxide 27 (21-32) mmol/L Anion Gap 7.0 (3-11) BUN 15 (7-18) mg/dl Creatinine 0.64 (0.6-1.2) mg/dl Est Cr Clr Drug Dosing 99.1 ml/min Est GFR ( Amer) 122.3 Est GFR (Non-Af Amer) 105.5 BUN/Creatinine Ratio 23.0 H (10-20) Glucose 99 (70-99) mg/dl Calcium 9.5 (8.5-10.1) mg/dl Total Bilirubin 1.2 H (0.2-1) mg/dl AST 101 H (15-37) U/L ALT 102 H (12-78) U/L Alkaline Phosphatase 91 (45-117) U/L Total Protein 8.0 (6.4-8.2) gm/dl Albumin 3.7 (3.4-5.0) gm/dl Globulin 4.3 H (2.5-4.0) gm/dl Albumin/Globulin Ratio 0.9 (0.9-2) Lipase 87821 H (73-393) U/L Urine Color Yellow Urine Appearance Clear (Clear) Urine pH 8.0 H (4.5-7.5) Ur Specific [place] 1.011 (1.000-1.030) Urine Protein Negative (Negative) Urine Glucose (UA) Negative (Negative) Urine Ketones Negative (Negative) Urine Blood 2+ H (Negative) Urine Nitrite Negative (Negative) Urine Bilirubin Negative (Negative) Urine Urobilinogen Negative (Negative) Ur Leukocyte Esterase Trace H (Negative) Urine WBC (Auto) 1-5 (0-5) /hpf Urine RBC (Auto) 10-30 H (0-4) /hpf U Hyaline Cast (Auto) 0 (0-5) /lpf U Epithel Cells (Auto) 10-20 H (0-5) /lpf Urine Bacteria (Auto) Negative (Negative) Diagnostic Findings ABDOMEN AND PELVIS CT WITH IV CONTRAST CT DOSE: 433.24 mGy.cm HISTORY: Acute right upper quadrant abdominal pain Pt c/o RUQ abd pain TECHNIQUE: Multiaxial CT images of the abdomen and pelvis were performed following the IV administration of 94 cc of Optiray 320, A dose lowering technique was utilized adhering to the principles of ALARA. COMPARISON STUDY: Right upper quadrant abdominal ultrasound of same day, CT abdomen and pelvis 08/06/2013 FINDINGS: Imaged lung bases appear clear. There is no pneumatosis or pneumoperitoneum. The imaged inferior cardiac chambers appear unremarkable. Cholelithiasis described on ultrasound study of same day is not appreciated by CT. The gallbladder wall appears to measure in the upper limits of normal. The liver, spleen, pancreas and adrenal glands are unremarkable. No renal or ureteral calculi or obstructive uropathy. 11 mm cyst of the inferior pole right kidney. Urinary bladder, uterus and adnexa appear unremarkable. Calcified plaque of the abdominal aorta. No aneurysm. No bowel obstruction or bowel wall thickening. Visualized appendix appears noninflamed. Mild generalized body wall edema. Degenerative changes of the spine, pelvis and hips. Transitional lumbosacral anatomy. IMPRESSION: 1. No bowel obstruction or bowel wall thickening. 2. Gallbladder wall measures within the upper limits of normal. Please refer to right upper quadrant abdominal ultrasound of same day for further details. US gallbladder HISTORY: 49 years-old Female Pt c/o RUQ abd pain acute right upper quadrant abdominal pain COMPARISON: CT abdomen and pelvis of same day TECHNIQUE: Multiple real-time sonographic images of the abdominal right upper quadrant were obtained assessing grayscale appearance and color flow FINDINGS: The imaged pancreas appears unremarkable. No pancreatic ductal dilation. The liver is within normal limits without focal mass or intrahepatic biliary ductal dilation. Cholelithiasis without gallbladder wall thickening or pericholecystic fluid. Common bile duct is normal, 5 mm. Imaged right kidney is unremarkable without hydronephrosis. IMPRESSION: 1. Cholelithiasis without sonographic evidence of acute cholecystitis. 2. No biliary ductal dilation. (1) Choledocholithiasis with obstruction Cholecystitis presence: without cholecystitis Qualified Code(s): K80.51 - Calculus of bile duct without cholangitis or cholecystitis with obstruction
[2019-06-24] MEDS ORDERED: ACETAMINOPHEN 1,000 MG/100 ML VIAL IV PRN (17:36)
[2019-06-24] MEDS: HYDROmorphone INJ 0.5 MG/0.5 ML SYR IV PRN ×3 (20:11→23:07)
--- NOTE | 2019-06-25 00:26 | Anesthesiology Consultation ---
Date of Service June 25, 2019 Assessment & Plan (1) Encounter for pre-operative examination: Chart Review Chart Review: Acceptable Risk for Surgery and Patient NOT seen in Pre Admission Testing Consults Requested none History Surgery Operation Date: 06/24/19 10:00 Proposed Procedures p Endoscopic Retrograde Cholangiopancreatogram - Loco Marr MD Operation Date: 06/25/19 10:30 Proposed Procedures p Laparoscopic Cholecystectomy - Brad Paniagua MD Height/Weight Height: 5 ft 2 in Weight: 70.8 kg Allergies Allergy/AdvReac Type Severity Reaction Status Date / Time No Known Allergies Allergy Unverified 06/24/19 06:57 Medications Home Medications Medication Instructions Recorded Confirmed Last Taken L norgest/e.estradiol-e.estrad 1 tab PO DAILY 06/24/19 06/24/19 06/24/19 [Seasonique] levothyroxine 125 mcg PO QAM 06/24/19 06/24/19 06/24/19 magnesium oxide 400 mg PO DAILY 06/24/19 06/24/19 Unknown multivitamin 1 tab PO QAM 06/24/19 06/24/19 06/24/19 Active Medications Generic Name Dose Route Start Last Admin Trade Name Freq PRN Reason Stop Dose Admin Hydromorphone HCl 0.5 mg 06/24/19 17:36 06/24/19 23:07 Dilaudid IV 07/08/19 17:35 0.5 mg Q1H PRN Administration Severe Pain Lactated Ringer's 1,000 mls @ 250 mls/hr 06/24/19 10:21 06/24/19 22:51 Lr IV 07/24/19 10:20 250 mls/hr .Q4H CADEN Administration Miscellaneous 1 ea 06/24/19 16:00 06/24/19 23:00 Order Awaiting Action N/A 07/24/19 15:59 Not Given QS CADEN Ondansetron HCl 4 mg 06/24/19 10:21 06/24/19 17:20 Zofran IV 07/24/19 10:20 4 mg Q6H PRN Administration Nausea NPO Date Last Intake of Fluids: 06/24/19 Time Last Intake of Fluids: 04:00 Date Last Intake of Solids: 06/23/19 Time Last Intake of Solids: 20:00 Past Medical History Medical History Hypothyroidism (Chronic) Depression (Resolved) Menometrorrhagia (Chronic) Past Family History Family History Mother Diabetes Hypertension Grandmother (Paternal) Hypertension Past Surgical History Surgical History History of tubal ligation (Chronic) History of pelvic surgery (Chronic) removal endometroma - 2001. Dr Trevino History of right inguinal hernia repair (Chronic) History of (Chronic) History of ERCP Social History Smoking Status: Never smoker Hx Alcohol Use: No Hx Substance Use: No Physical Exam Vital Signs Last Vital Signs Temp 36.7 C 06/24/19 23:27 Pulse 81 06/24/19 23:27 Resp 18 06/24/19 23:27 BP 134/83 06/24/19 23:27 Pulse Ox 96 06/24/19 23:27 Testing Laboratory Results 06/24/19 06:30 06/24/19 06:30 Urine Color Yellow 06/24/19 06:45 Urine Appearance Clear (Clear) 06/24/19 06:45 Urine pH 8.0 (4.5-7.5) H 06/24/19 06:45 Ur Specific [place] 1.011 (1.000-1.030) 06/24/19 06:45 Urine Protein Negative (Negative) 06/24/19 06:45 Urine Glucose (UA) Negative (Negative) 06/24/19 06:45 Urine Ketones Negative (Negative) 06/24/19 06:45 Urine Nitrite Negative (Negative) 06/24/19 06:45 Ur Leukocyte Esterase Trace (Negative) H 06/24/19 06:45 Urine WBC (Auto) 1-5 /hpf (0-5) 06/24/19 06:45 Urine RBC (Auto) 10-30 /hpf (0-4) H 06/24/19 06:45 U Hyaline Cast (Auto) 0 /lpf (0-5) 06/24/19 06:45 U Epithel Cells (Auto) 10-20 /lpf (0-5) H 06/24/19 06:45 Urine Bacteria (Auto) Negative (Negative) 06/24/19 06:45
[2019-06-25] MEDS: LACTATED RINGER'S 1,000 ML IV SCH ×4 (02:49→12:05)
[2019-06-25] MEDS: HYDROmorphone INJ 0.5 MG/0.5 ML SYR IV PRN ×3 (02:53→08:27)
[2019-06-25 05:21] LABS: Hematocrit (blood only) 44.5 % (37-47); Hemoglobin 15.3 g/dL (12.0-16.0); Mean Corpuscular Hemoglobin 31.1 pg (25-34); Mean Corpuscular Hgb Conc 34.4 g/dL (32-36); Mean Corpuscular Volume 90.4 fL (80-100); Platelet Count 247 K/uL (130-400); RDW Coefficient of Variation 13.8 % (11.5-14.5); RDW Standard Deviation 45.4 fL (36.4-46.3); Red Blood Count 4.92 M/uL (4.2-5.4); White Blood Count 9.58 K/uL (4.8-10.8)
[2019-06-25 06:13] LABS: Albumin Globulin Ratio 0.9 (0.9-2); BUN Creatinine Ratio 20.6 (10-20); Bilirubin Direct 0.3 mg/dl (0-0.2); Bilirubin,Total 1.1 mg/dl (0.2-1); Calcium 8.2 mg/dl (8.5-10.1); Creatinine Clr Calc Pharmacy 158.5 ml/min; Est GFR (African American) 142.8; Est GFR (Non-African American) 123.2; Globulin 3.4 gm/dl (2.5-4.0); Potassium 3.8 mmol/L (3.5-5.1); Total Protein 6.4 gm/dl (6.4-8.2)
[2019-06-25] MEDS ORDERED: LEVOTHYROXINE SODIUM 125 MCG TABLET PO SCH (06:30)
--- NOTE | 2019-06-25 07:03 | Gastroenterology Progress Note ---
Date of Service June 25, 2019 Assessment & Plan (1) Choledocholithiasis with obstruction: 1. No NSAIDs x 5 days 2. Diet per surgery. 3. ERCP in 4 weeks for removal fo CBD stent. Our office has been notified and will contact this pt to arrange OP ERCP. 4. GI will watch peripherally. Please contact GI if new/worsening GI issues. Present on Admission?: Yes Supervising Physician Co-Signing Physician Notes I performed a history and physical examination of the patient, including specifically on physical exam - soft, nontender abdomen. I have discussed the patient's management with Kyung. Please refer to the nurse practitioner's note for the documented findings and plan of care. s/p Lap guicho today, feels well. OP repeat ERCP for stent removal. Recall if needed. Subjective Ms. Fracisco Yang is a 49 yr old female who presented yesterday with gallstone pancreatitis. She is post procedure day #2 from ERCP with sphincterotomy and balloon extraction of choledocholithiasis. She underwent lap guicho earlier today. She is seen and examined while she is resting in bed. She is a bit sleepy from receiving recent pain meds but is awake and able to tell me that her pain is much better than yesterday, that she has "soreness," today. Afebrile, no leukocytosis. Lipase 64190 -> 548. T Bili 1.2->1.1, AST 101->31, ALT 102->84. Review of Systems Review of Systems: ROS: Gen: No fevers, no unexplained weight loss Eyes: No eye redness, or pain, no recent vision changes Resp: No SOB, no cough Cardio: No palpitations/irregular beats, no chest pain GI: + appropriate surgical abdominal pain, no nausea/vomiting : Denies pain on urination Skin: No jaundice, itching or new rashes Physical Exam Constitutional: WD/WN, vitals as above Eyes: PERRL, conjunctivae normal, anicteric sclerae ENMT: external ear and nose normal, oropharynx normal Neck: trachea midline, no thyromegaly Respiratory: normal respiratory effort, lungs clear to auscultation Cardiovascular: RRR, no murmur, no edema Gastrointestinal (Abdomen): Inspection/Auscultation: abdomen normal to inspection (dressings dry and intact) and normal bowel sounds (BS are present in all 4 quadrants); abdomen not distended Percussion/Palpation: + abdomen tender (mild diffuse upper abdomen tenderness) and abdomen soft Skin: no rashes, warm and dry normal turgor Neurologic: PERRL, EOMI, accommodation nl, no face palsy, no dysarthria Psychiatric: A+Ox3, euthymic affect Results & Data Vital Signs (Past 12 Hours) Vital Signs Temp Pulse Pulse Resp BP BP Pulse Ox 06/25/19 03:47 36.6 C 78 18 113/71 98 06/24/19 23:27 36.7 C 81 18 134/83 96 06/24/19 19:18 36.6 C 73 16 143/86 H 96 (1) Choledocholithiasis with obstruction Cholecystitis presence: without cholecystitis Qualified Code(s): K80.51 - Calculus of bile duct without cholangitis or cholecystitis with obstruction
--- NOTE | 2019-06-25 08:21 | Anesthesiology Progress Note ---
Date of Service June 25, 2019 Anesthesia Post Procedure Vital Signs Vital Signs: Temp Pulse Pulse Pulse Resp BP BP 06/25/19 07:29 36.5 C 83 16 116/76 06/25/19 03:47 36.6 C 78 18 113/71 06/24/19 23:27 36.7 C 81 18 06/24/19 19:18 36.6 C 73 16 143/86 H 06/24/19 16:44 36.6 C 76 16 142/88 H 06/24/19 16:14 36.7 C 76 16 144/89 H 06/24/19 15:35 36.6 C 75 14 146/82 H 06/24/19 15:20 81 16 134/84 06/24/19 15:15 37.1 C 83 16 102/64 06/24/19 15:10 74 16 133/87 06/24/19 15:00 76 16 141/84 H 06/24/19 14:50 81 16 139/59 L 06/24/19 14:40 78 16 149/95 H 06/24/19 14:30 36.4 C L 84 16 141/94 H 06/24/19 14:20 86 16 143/86 H 06/24/19 14:10 68 16 117/76 06/24/19 14:00 36.2 C L 70 22 110/69 06/24/19 12:44 36.6 C 78 20 126/79 06/24/19 10:15 36.6 C 76 16 128/83 06/24/19 10:03 86 20 128/89 BP Pulse Ox 06/25/19 07:29 100 06/25/19 03:47 98 06/24/19 23:27 134/83 96 06/24/19 19:18 96 06/24/19 16:44 95 06/24/19 16:14 97 06/24/19 15:35 95 06/24/19 15:20 96 06/24/19 15:15 96 06/24/19 15:10 95 06/24/19 15:00 98 06/24/19 14:50 100 06/24/19 14:40 100 06/24/19 14:30 100 06/24/19 14:20 95 06/24/19 14:10 100 06/24/19 14:00 99 06/24/19 12:44 06/24/19 10:15 97 06/24/19 10:03 98 Pain Intensity Bilateral Abdomen: Pain Intensity: 5 Notes Mental Status: alert / awake / arousable Patient Amnestic to Procedure: Yes Nausea / Vomiting: adequately controlled Pain: adequately controlled Airway Patency, RR, SpO2: stable & adequate BP & HR: stable & adequate Hydration State: stable & adequate Anesthetic Complications: no major complications apparent
--- NOTE | 2019-06-25 08:36 | Surgery Progress Note ---
Date of Service June 25, 2019 Assessment & Plan (1) Gallstone pancreatitis: Clinically much improved Laboratory studies have improved Planning for laparoscopic cholecystectomy I discussed the laparoscopic procedure and the possible need to convert to an open procedure and we discussed the possible complications associated with these procedures. I answered her questions and she has signed consent form. Subjective Feels well today Denies pain No nausea or vomiting Physical Exam Gastrointestinal (Abdomen): Inspection/Auscultation: abdomen not distended Percussion/Palpation: abdomen soft; abdomen nontender Results & Data Vital Signs (Past 12 Hours) Vital Signs Temp Pulse Pulse Resp BP BP Pulse Ox 06/25/19 07:29 36.5 C 83 16 116/76 100 06/25/19 03:47 36.6 C 78 18 113/71 98 06/24/19 23:27 36.7 C 81 18 134/83 96 Laboratory Results 06/25/19 06/25/19 Range/Units 05:04 05:04 WBC 9.58 (4.8-10.8) K/uL RBC 4.92 (4.2-5.4) M/uL Hgb 15.3 (12.0-16.0) g/dL Hct 44.5 (37-47) % MCV 90.4 (80-100) fL MCH 31.1 (25-34) pg MCHC 34.4 (32-36) g/dL RDW Std Deviation 45.4 (36.4-46.3) fL RDW Coeff of Walt 13.8 (11.5-14.5) % Plt Count 247 (130-400) K/uL MPV 12.0 H (7.4-10.4) fL Sodium 136 (136-145) mmol/L Potassium 3.8 (3.5-5.1) mmol/L Chloride 105 (98-107) mmol/L Carbon Dioxide 24 (21-32) mmol/L Anion Gap 7.0 (3-11) BUN 8 D (7-18) mg/dl Creatinine 0.40 L (0.6-1.2) mg/dl Est Cr Clr Drug Dosing 158.5 ml/min Est GFR ( Amer) 142.8 Est GFR (Non-Af Amer) 123.2 BUN/Creatinine Ratio 20.6 H (10-20) Glucose 80 (70-99) mg/dl Calcium 8.2 L (8.5-10.1) mg/dl Total Bilirubin 1.1 H (0.2-1) mg/dl Direct Bilirubin 0.3 H (0-0.2) mg/dl AST 31 (15-37) U/L ALT 84 H (12-78) U/L Alkaline Phosphatase 80 (45-117) U/L Total Protein 6.4 (6.4-8.2) gm/dl Albumin 3.0 L (3.4-5.0) gm/dl Globulin 3.4 (2.5-4.0) gm/dl Albumin/Globulin Ratio 0.9 (0.9-2) Lipase 548 H (73-393) U/L
[2019-06-25] MEDS ORDERED: GLYCOPYRROLATE 0.2 MG/ML VIAL ONE (08:56)
[2019-06-25] MEDS ORDERED: ONDANSETRON INJ 2 MG/ML 2 ML VIAL ONE (08:56)
[2019-06-25] MEDS ORDERED: DEXAMETHASONE SOD INJ 4 MG/ML VIAL ONE (08:56)
[2019-06-25] MEDS ORDERED: PROPOFOL IV EMULSION 10 MG/ML 20 ML VIAL IV ONE (08:56)
[2019-06-25] MEDS ORDERED: fentaNYL citrate 100 MCG/2 ML VIAL ONE (08:56)
[2019-06-25] MEDS ORDERED: NEOSTIGMINE METHYLSULFATE 5 MG/5 ML SYR ONE (08:56)
[2019-06-25] MEDS ORDERED: LIDOCAINE HCL 2% 2 ML VIAL/AMP(20MG/ML) INFIL ONE (08:56)
[2019-06-25] MEDS ORDERED: MIDAZOLAM HCL 1 MG/ML 2ML VIAL ONE (08:56)
[2019-06-25] MEDS ORDERED: HEPARIN (PORCINE) 1000 UNIT/ML 10 ML (CATH LAB USE ONLY) ONE (08:58)
[2019-06-25] MEDS ORDERED: CEFAZOLIN 250 MG/ML 1 GM VIAL ONE (08:59)
[2019-06-25] MEDS ORDERED: BUPIVACAINE 0.5 % 5 MG/1 ML MPF 30ML VIAL ONE (08:59)
[2019-06-25] MEDS ORDERED: CONRAY 60% 50 ML VIAL ONE (08:59)
[2019-06-25] MEDS ORDERED: CEFAZOLIN 2000MG 2,000 MG/15 ML SYR IV STA (09:07)
[2019-06-25] MEDS ORDERED: ONDANSETRON INJ 2 MG/ML 2 ML VIAL IV PRN (09:28)
[2019-06-25] MEDS ORDERED: KETOROLAC 30 MG/ML VIAL IV PRN (09:28)
[2019-06-25] MEDS ORDERED: PROMETHAZINE HCL 6.25 MG in SODIUM CHLORIDE 0.9% 50 ML IV PRN (09:28)
[2019-06-25] MEDS ORDERED: ATROPINE SULFATE 0.1 MG/ML 10ML SYR IV PRN (09:28)
[2019-06-25] MEDS ORDERED: LABETALOL HCL IV 5 MG/ML 20ML IV PRN (09:28)
[2019-06-25] MEDS ORDERED: ROCURONIUM BROMIDE 10 MG/ML 5 ML VIAL ONE (10:01)
[2019-06-25] MEDS ORDERED: KETOROLAC 30 MG/ML VIAL ONE (10:36)
--- NOTE | 2019-06-25 10:47 | Post Operative Brief Note ---
Immediate Post Op Note v1 Date of Surgery June 25, 2019 Pre & Post Diagnosis Operation Date: 06/25/19 10:30 Pre-Op Diagnosis: cholelithiasis, history of pancreatitis and choledocholithiasis Post-Op Diagnosis: cholelithiasis, history of pancreatitis and choledocholithiasis I identified the patient and participated in the time-out.: Yes Procedure Operation Date: 06/25/19 10:30 Actual Procedures p Laparoscopic Cholecystectomy(Not Applicable) - Brad Paniagua MD Surgeon Brad Paniagua MD Medical And Scientific Illustrator None Estimated Blood Loss 8 Findings Consistent with Post-Op Diagnosis Specimens Gallbladder and contents Anesthesia Type General Complications none
[2019-06-25] MEDS: HYDROmorphone INJ 1 MG/ML SYRINGE IV PRN ×4 (11:08→11:23)
--- NOTE | 2019-06-25 11:41 | Operative Report ---
DATE OF OPERATION: 06/25/2019 PREOPERATIVE DIAGNOSES: Cholelithiasis, history of choledocholithiasis, history of pancreatitis. POSTOPERATIVE DIAGNOSES: Cholelithiasis, history of choledocholithiasis, history of pancreatitis. PROCEDURE: Laparoscopic cholecystectomy. SURGEON: Brad Paniagua MD DEPUTY ADMINISTRATOR: Franny Diana PA-C FINDINGS: The gallbladder had small gravel-like stones. It was elongated, but not dilated. The cystic duct was very mildly dilated. The liver was of normal size and contour and the visible bowel appeared normal. TECHNIQUE: The patient was given a general anesthetic and the area was prepped and draped in the usual sterile fashion. Transverse incision was made below the umbilicus, carried down through the subcutaneous tissue to the fascia which was grasped with 2 Kelley clamps and incised between. The peritoneum was identified, incised, and the introducer was placed bluntly. The abdomen was then insufflated to a pressure of 15 mmHg with carbon dioxide. The upper midline, midclavicular, and anterior axillary introducers were placed under direct vision through small skin incisions. Traction was placed on the gallbladder beginning on the lateral side, the peritoneum was opened. There was edema within the tissue planes. I dissected the infundibulum and the body away from the liver on the lateral side and then placed lateral traction and opened the triangle of [place]ot. There were a lot of thickened lymphatics and connective tissue on the anterior surface of the neck of the gallbladder that were peeled towards the common bile duct exposing the anterior surface of the cystic duct. The lateral edge of the cystic duct was skeletonized. I then was able to establish a plane on the medial side and was able to establish a plane behind the cystic duct, identifying the gallbladder cystic duct junction. Further dissection was then carried out within the triangle of [place] where the cystic artery was identified. This was skeletonized as well which created a good window. It exacerbated the window behind the cystic duct allowing me to confirm the cystic duct gallbladder junction. Two clips were placed on the proximal cystic duct, one near the junction with the gallbladder and it was divided. That allowed me to elevate the neck of the gallbladder and place 2 clips on the proximal cystic artery and one near the gallbladder. There were 2 other small posterior branches of the artery or large lymphatics that were encountered and these were clipped and divided as well. The gallbladder was then peeled off the liver bed using electrocautery. It was placed into an Endobag and brought out through the upper midline incision where I had to open the gallbladder and remove the bile in order to extract it, but that was accomplished. That introducer was replaced. The liver edge was elevated. The subhepatic space was irrigated, the irrigation was removed. The gallbladder bed of the liver was inspected and there was no oozing. The previously placed clips were intact. Subdiaphragmatic and subhepatic spaces were further irrigated and that was removed. The gallbladder bed of the liver was again inspected and there was no bleeding. The gas was allowed to escape and the introducers were removed. The fascia of the umbilical and upper midline introducer sites was closed with interrupted 0 Vicryl and the skin of all the incisions was closed with 4-0 Monocryl in either an interrupted or running subcuticular fashion. The skin was anesthetized with 0.5% Marcaine. The skin was cleansed, dried, benzoin placed, Steri-Strips applied. The estimated blood loss was 8 mL. Sponge, needle, and instrument counts were correct prior to closure. The patient tolerated the surgical procedure without complication and was transferred to recovery. I attest to the content of the Intraoperative Record and any orders documented therein. Any exception s are noted below.
--- NOTE | 2019-06-25 12:22 | Anesthesiology Progress Note ---
Date of Service June 25, 2019 Anesthesia Post Procedure Vital Signs Vital Signs: Temp Pulse Pulse Resp BP BP Pulse Ox 06/25/19 12:02 36.8 C 85 16 129/67 95 06/25/19 11:40 37.0 C 76 16 135/81 95 06/25/19 11:30 37.0 C 77 16 134/79 95 06/25/19 11:20 86 16 147/75 H 95 06/25/19 11:10 90 16 150/84 H 98 06/25/19 11:02 37.8 C H 96 H 16 141/94 H 98 06/25/19 08:57 85 18 140/74 99 06/25/19 07:29 36.5 C 83 16 116/76 100 06/25/19 03:47 36.6 C 78 18 113/71 98 06/24/19 23:27 36.7 C 81 18 134/83 96 06/24/19 19:18 36.6 C 73 16 143/86 H 96 06/24/19 16:44 36.6 C 76 16 142/88 H 95 06/24/19 16:14 36.7 C 76 16 144/89 H 97 06/24/19 15:35 36.6 C 75 14 146/82 H 95 06/24/19 15:20 81 16 134/84 96 06/24/19 15:15 37.1 C 83 16 102/64 96 06/24/19 15:10 74 16 133/87 95 06/24/19 15:00 76 16 141/84 H 98 06/24/19 14:50 81 16 139/59 L 100 06/24/19 14:40 78 16 149/95 H 100 06/24/19 14:30 36.4 C L 84 16 141/94 H 100 06/24/19 14:20 86 16 143/86 H 95 06/24/19 14:10 68 16 117/76 100 06/24/19 14:00 36.2 C L 70 22 110/69 99 06/24/19 12:44 36.6 C 78 20 126/79 Pain Intensity Bilateral Abdomen: Pain Intensity: 6 Transfer of Care Handoff Completed per policy Notes Mental Status: alert / awake / arousable Patient Amnestic to Procedure: Yes Nausea / Vomiting: adequately controlled Pain: adequately controlled Airway Patency, RR, SpO2: stable & adequate BP & HR: stable & adequate Hydration State: stable & adequate Anesthetic Complications: no major complications apparent
[2019-06-25] MEDS: LEVOTHYROXINE SODIUM IV SCH (12:27)
[2019-06-25] MEDS: MoRPHine SULFATE 4 MG/ML 1 ML CARP\\VIAL IV PRN (14:03)
[2019-06-25] MEDS: OXYCODONE/ACETAMINOPHEN 5mg/325mg TAB PO PRN ×2 (16:04→20:19)
--- NOTE | 2019-06-25 18:49 | Hospitalist Progress Note ---
Date of Service June 25, 2019 Assessment & Plan (1) Gallstone pancreatitis: Improved s/p ERCP with stent placement and removal of gallstone. s/p lap guicho this morning. (2) Transaminitis: Improved after treatment above. (3) Elevated blood-pressure reading, without diagnosis of hypertension: was likely secondary to pain. No evidence of HTN and no pharmacologic therapy needed. (4) Hypothyroidism: Graves disease s/p radiation. Continue levothyroxine per home regimen. (5) DVT prophylaxis: SCDs post-procedures Full Dispo-pending surgical clearance to go home. Kasandra Adame DO [facility] Hospitalist Subjective feeling well post operatively denies pain, nausea mentating well Review of Systems Review of Systems: All systems reviewed & are unremarkable except as noted in HPI & below Physical Exam Physical Exam: CONSTITUTIONAL: WNWD, vitals as above, generally well- appearing EYES: normal conjunctivae, no scleral icterus ENT: MMM RESPIRATORY: clear to auscultation bilaterally, no crackles, rales or wheezes, normal respiratory effort CARDIOVASCULAR: regular rate and rhythm, S1 and 2 heard without murmurs, gallops or rubs, no JVD, no peripheral edema GASTROINTESTINAL: normal bowel sounds, soft, nondistended. Mildly TTP just around incision sites as expected. Sites covered with steri-strips without evidence of drainage. MUSCULOSKELETAL: strength 5/5 throughout, head is normocephalic and SKIN: warm and dry, incision sites as above. NEUROLOGIC: CN 2-12 grossly intact, no sensory deficit, normal cognition, normal speech, no tremor, no gross focal deficits. PSYCHIATRIC: alert cooperative and oriented to person, place and time. Results & Data Vital Signs (Past 12 Hours) Vital Signs Temp Pulse Pulse Resp BP BP Pulse Ox 06/25/19 15:43 36.7 C 71 16 123/74 97 06/25/19 15:01 36.6 C 79 18 120/70 96 06/25/19 13:53 36.5 C 81 16 115/71 94 06/25/19 12:48 83 18 124/75 95 06/25/19 12:20 36.8 C 83 16 135/80 95 06/25/19 12:02 36.8 C 85 16 129/67 95 06/25/19 11:40 37.0 C 76 16 135/81 95 06/25/19 11:30 37.0 C 77 16 134/79 95 06/25/19 11:20 86 16 147/75 H 95 06/25/19 11:10 90 16 150/84 H 98 06/25/19 11:02 37.8 C H 96 H 16 141/94 H 98 06/25/19 08:57 85 18 140/74 99 06/25/19 07:29 36.5 C 83 16 116/76 100 Laboratory Results Short CBC 06/25/19 Range/Units 05:04 WBC 9.58 (4.8-10.8) K/uL Hgb 15.3 (12.0-16.0) g/dL Hct 44.5 (37-47) % Plt Count 247 (130-400) K/uL BMP 06/25/19 05:04 Sodium 136 Potassium 3.8 Chloride 105 Carbon Dioxide 24 BUN 8 D Creatinine 0.40 L Glucose 80 Calcium 8.2 L Liver Function 06/25/19 Range/Units 05:04 Total Bilirubin 1.1 H (0.2-1) mg/dl Direct Bilirubin 0.3 H (0-0.2) mg/dl AST 31 (15-37) U/L ALT 84 H (12-78) U/L Alkaline Phosphatase 80 (45-117) U/L Albumin 3.0 L (3.4-5.0) gm/dl Medications Administered Current Inpatient Medications Levothyroxine Sodium 62 mcg/ (Syringe) 3.1 mls @ 2 mls/min IV DAILY@0900 CADEN Stop: 07/25/19 08:59 Last Admin: 06/25/19 12:27 Dose: 2 mls/min Documented by: Morphine Sulfate (Morphine Sulfate) 4 mg IV Q2H PRN PRN Reason: Pain Stop: 07/09/19 12:00 Last Admin: 06/25/19 14:03 Dose: 4 mg Documented by: Ondansetron HCl (Zofran) 4 mg IV Q6H PRN PRN Reason: Nausea Stop: 07/24/19 10:20 Last Admin: 06/24/19 17:20 Dose: 4 mg Documented by: Oxycodone/Acetaminophen (Percocet 5mg/325mg) 1 tab PO Q4H PRN PRN Reason: Pain Stop: 07/09/19 12:00 Last Admin: 06/25/19 16:04 Dose: 1 tab Documented by: Polyethylene Glycol (Miralax Powder Packet) 17 gm PO DAILY PRN PRN Reason: Constipation Stop: 07/24/19 10:20
[2019-06-26 05:35] LABS: Basophils # (auto) 0.01 K/uL (0-0.2); Basophils % (auto) 0.1 %; Eosinophils # (auto) 0.08 K/uL (0-0.5); Eosinophils % (auto) 0.8 %; Hematocrit (blood only) 42.9 % (37-47); Hemoglobin 14.7 g/dL (12.0-16.0); Immature Granulocytes # (auto) 0.02 K/uL (0.00-0.02); Immature Granulocytes % (auto) 0.2 %; Lymphocytes # (auto) 3.96 K/uL (1.2-3.4); Lymphocytes % (auto) 37.4 %; Mean Corpuscular Hemoglobin 31.1 pg (25-34); Mean Corpuscular Hgb Conc 34.3 g/dL (32-36); Mean Corpuscular Volume 90.7 fL (80-100); Mean Platelet Volume 11.6 fL (7.4-10.4); Monocytes % (auto) 8.5 %; Neutrophils # (auto) 5.62 K/uL (1.4-6.5); Platelet Count 255 K/uL (130-400); RDW Coefficient of Variation 14.2 % (11.5-14.5); RDW Standard Deviation 47.2 fL (36.4-46.3); Red Blood Count 4.73 M/uL (4.2-5.4); White Blood Count 10.59 K/uL (4.8-10.8)
[2019-06-26 06:20] LABS: Albumin Globulin Ratio 0.9 (0.9-2); BUN Creatinine Ratio 14.4 (10-20); Bilirubin,Total 0.9 mg/dl (0.2-1); Calcium 8.3 mg/dl (8.5-10.1); Creatinine Clr Calc Pharmacy 134.9 ml/min; Est GFR (African American) 135.4; Est GFR (Non-African American) 116.8; Globulin 3.3 gm/dl (2.5-4.0); Potassium 3.2 mmol/L (3.5-5.1); Total Protein 6.3 gm/dl (6.4-8.2)
[2019-06-26] MEDS: MoRPHine SULFATE 4 MG/ML 1 ML CARP\\VIAL IV PRN (07:34)
--- NOTE | 2019-06-26 08:20 | Surgery Progress Note ---
Date of Service June 26, 2019 Assessment & Plan (1) Gallstone pancreatitis: Postoperative day #1 status post laparoscopic cholecystectomy Doing well Tolerating clear liquid diet Can advance to low-fat diet Encouraged ambulation Can be discharged from surgical standpoint when felt appropriate by the medical team Instructions discussed with her We will follow-up with us in the office in 2 weeks Subjective Postoperative day #1, status post laparoscopic cholecystectomy Having mild abdominal discomfort that she describes as feeling like she needs to pass gas Denies nausea and vomiting Tolerated clear liquids Physical Exam Gastrointestinal (Abdomen): Inspection/Auscultation: normal bowel sounds; abdomen not distended Percussion/Palpation: + abdomen tender (Mild incisional) and abdomen soft Results & Data Vital Signs (Past 12 Hours) Vital Signs Temp Pulse Resp BP Pulse Ox 06/26/19 08:00 36.7 C 78 16 129/78 99 06/26/19 03:21 36.7 C 72 16 137/75 98 06/25/19 23:51 36.7 C 68 16 114/71 98 06/25/19 20:22 36.6 C 85 16 126/77 100
[2019-06-26] MEDS: POTASSIUM CHLORIDE 20 MEQ TABCR PO SCH ×2 (08:51→14:05)
[2019-06-26] MEDS: LEVOTHYROXINE SODIUM IV SCH (08:52)
[2019-06-26] MEDS ORDERED: HYDROCODONE/ACETAMOPHEN 5/325MG TAB PO PRN (10:22)
--- NOTE | 2019-06-26 13:19 | Discharge Summary ---
Date of Service June 26, 2019 Admission HPI Per Admitting Provider Pt is 49 y/o F with PMH Graves disease s/p radiation, menometrorrhagia presented to ER with c/o abdominal pain. Reports for past month with intermittent upper abdominal pain that would resolve with taking TUMS. Today woke up hospice physician with upper abdominal pain with radiation to back. Also with nausea. No vomiting. Tried TUMS without relief. Did take her am meds this morning with sip of water. Last ate nutrition bar at 20:00 last night. Reports for past several months has been doing a weight loss program that includes nutrition bars and shakes and reports has lost 75lbs. She reports the shakes make her constipated. Last BM was small yesterday. Denies fever/chills, diaphoresis, vomiting, CORONADO, dizziness, syncope, vision changes, neck pain, CP, SOB, orthopnea, palpitations, cough, sore throat, choking, otalgia, rhinorrhea, paresthesias, weakness, extremity weakness, extremity edema, rashes, urinary symptoms. Denies ETOH use. Admission Exam Per Admitting Provider General: no distress, WDWN Head: normocephalic, atraumatic Eyes: PERRL, EOM's intact, conjunctiva non-injected, anicteric ENT: normal inspection external ears, nose, mucous membranes moist Neck: supple, trachea midline Lungs: clear, no respiratory distress, no wheezing/rhonchi/rales CV: RRR, no murmur, no pretibial edema Abd: normal BS, soft, +tenderness to palpation epigastric without rebound Ext: no cyanosis, no calf tenderness Neuro: A&O x 3, no focal deficits noted, normal affect Skin: warm, dry Principal Diagnosis Gallstone pancreatitis Acute cholecystitis s/p lap guicho Discharge Exam CONSTITUTIONAL: WNWD, vitals as above, generally well-appearing EYES: normal conjunctivae, no scleral icterus ENT: MMM RESPIRATORY: clear to auscultation bilaterally, no crackles, rales or wheezes, normal respiratory effort CARDIOVASCULAR: regular rate and rhythm, S1 and 2 heard without murmurs, gallops or rubs, no JVD, no peripheral edema GASTROINTESTINAL: normal bowel sounds, soft, nondistended. Mildly TTP just around incision sites as expected. Sites covered with steri-strips without evidence of drainage. MUSCULOSKELETAL: strength 5/5 throughout, head is normocephalic and SKIN: warm and dry, incision sites as above. NEUROLOGIC: CN 2-12 grossly intact, no sensory deficit, normal cognition, normal speech, no tremor, no gross focal deficits. PSYCHIATRIC: alert cooperative and oriented to person, place and time. Discharge Data Allergies Allergy/AdvReac Type Severity Reaction Status Date / Time No Known Allergies Allergy Unverified 06/25/19 08:55 Consultations 06/24/19 08:24 ED Decision to Admit Stat 06/24/19 08:26 Consult General Surgery Stat 06/24/19 08:34 Consult Gastroenterology Stat 06/24/19 10:21 Consult Gastroenterology Routine Consult General Surgery Routine Procedures Performed Operation Date: 06/24/19 10:00 Actual Procedures p Endoscopic Retrograde Cholangiopancreatogram; (Not Applicable) - Loco Marr MD s Esophagogastroduodenoscopy(Not Applicable) - Loco Marr MD Operation Date: 06/25/19 10:30 Actual Procedures p Laparoscopic Cholecystectomy(Not Applicable) - Brad Paniagua MD Ordered Studies 06/24/19 [place] ERCP biliary ductal Routine 06/24/19 06:31 CT abd pelvis IV con only Stat US gallbladder Stat Hospital Course (1) Gallstone pancreatitis: Severe abdominal pain with elevated LFTs. Initial imaging included a CT a/p revealing no evidence of bowel obstruction or bowel wall thickening. A RUQ ultrasound revealed no evidence of acute cholecystitis or biliary ductal dilation, however, she had a gallbladder wall thickness that was in the upper limit of normal and was seen . GI was consulted and an ERCP was performed. There was no evidence of cystic duct obstruction and a biliary stent was placed. The following day she underwent a laparoscopic cholecystectomy with Dr. Brad Paniagua from General Surgery. She did well post-operatively and diet was advanced without issue. At time of discharge she was ambulating at baseline and tolerating PO. (2) Transaminitis: Improved after treatment above. (3) Elevated blood-pressure reading, without diagnosis of hypertension: was likely secondary to pain. No evidence of HTN and no pharmacologic therapy needed. (4) Hypothyroidism: Graves disease s/p radiation. Continue levothyroxine per home regimen. Total Time Total Time Spent Total Time Spent (In Minutes): 60 Total Time Includes: Examination of the Patient, Discharge Planning, Medication Reconciliation, Communication With Other Providers and Other (arrange follow-up) Discharge Plan Discharge Items Patient Disposition: Home - Self-Care Reason For Visit: PANCREATITIS Discharge Diagnosis: Gallstone pancreatitis Acute cholecystitis s/p lap guicho Condition on Discharge: Good Activity: Per Instructions section Lifting: No more than 10 pounds Lifting Comment: until surgery follow-up Bathing Comment: do not scrub incision sites, no baths or soaking Weightbearing: Full weightbearing Non-emergency contact: Surgeon Call non-emergency contact if: you have any medication questions, your symptoms worsen, your pain is not controlled, your pain is worsening, your pain is unusual for you, your pain is concerning for you and you have a fever Follow-up/Referrals: Brad Paniagua MD [Physician] - Darlene Matias DO [Primary Care Provider] - Loco Marr MD [Hospitalist] - Diet: Regular Addtl Attending Provider Instructions: Post-Surgical ~Discharge Instructions Activity Recommendations: - lifting limitation: (10 pounds for 2 weeks), - exercise/sex/sports limit: (nonstrenuous for 2 weeks), - driving or machine use limit: (none for 1 week), - Shower/bathe limit: (may shower beginning tomorrow) Diet: - Resume previous diet SPECIAL CARE INSTRUCTIONS: - May shower in 24 hours. Let water run over area and pat dry. - Leave steri strips on for one week. - Call the surgeon's office with any questions or concerns - - (ex. temperature higher than 101 degrees F, excessive bleeding or pain). MEDICATIONS: - Resume previous medications unless instructed otherwise by your surgeon. - Ibuprofen 600 mg every 6 hours with food (may start 5 days after ERCP) - Hydrocodone 1 every 4 hours, as needed for pain FOLLOW UP VISIT: - If not already scheduled, please call the office to schedule a two week follow-up appointment. Office number ADDITIONAL PROVIDER INSTRUCTIONS: -Please follow up with your primary care provider within one week of discharge. 07/01/2019 1:00 PM Darlene Matias DO [facility] -Please follow-up with [facility] Gastroenterology in the next 4-6 weeks for monitoring of your abdominal stent -Please follow-up with [facility] General Surgery in two weeks or as otherwise instructed. -Please avoid NSAIDs (non-steroidal anti-inflammatory medications) for 5 days after your ERCP procedure. It was a pleasure taking care of you! Please call if you have any questions or problems. You can reach a [facility] hospitalist on duty at [facility] 24 hours a day by calling [phone]. Take care of yourself. Kasandra Adame, [place] [facility] Center[facility] Pending Studies at Discharge: Yes Studies:: surgical pathology Stand-Alone Forms: Call Back Authorization, [facility], Opioid Pain Management, Smoking Cessation Medications and DC Order Prescriptions: New hydrocodone-acetaminophen 5-325 mg tablet 1 tab PO Q6H PRN (Reason: severe pain) Qty: 15 RF: 0 Continued multivitamin Tablet 1 tab PO QAM RF: 0 levothyroxine 125 mcg Tablet 125 mcg PO QAM RF: 0 L norgest/e.estradiol-e.estrad [Seasonique] 0.15 mg-30 mcg (84)/10 mcg (7) Tablets,Dose Pack,3 Month 1 tab PO DAILY RF: 0 magnesium oxide 400 mg magnesium Capsule 400 mg PO DAILY RF: 0 Discharge Orders: Discharge Order (Routine); Ordered 06/26/19 Ordered By: Kasandra Sutherland/Other Patient Handouts: Surgery Prevent DVT After Admission Data Admit Date/Time: 06/24/19 09:10 Attending Provider: Kasandra Adame Admit Provider: Kasandra Adame Primary Care Provider: Darlene Matias Other Providers: Brad Paniagua ; Loco Marr ; Kasandra Adame Other Interventions: Discharge Summary Assessment (RN) Last Done: 06/26/19 13:47 DC Date/Time DO NOT enter until pt leaves facility: 06/26/19 14:22
== END 2019-06-26 14:22 | disposition home or self-care (01) | DRG 417 ==
LOC: ED 06:13 → 3W 09:10